=== PATIENT | female | born 1940 | race Caucasian/White ===

== ENCOUNTER → 2017-01-27 | Outpatient (REF) | payer MEDICARE ==
[~2017-01-27] MED LIST: ALBUTEROL SULFATE INH; ASPI325T PO; BENI40TA3 PO; CALCIUM 600+D PO; CLON-404 PO; DRIS50002 PO; DULC5TAB PO; FLAX1200 PO; IODINE PO; MICR10CA PO; MULTCAP PO; NITR4TASL SL; NORT50CA PO; OMEG100011 PO; OXYC1SOL PO; PLAV75TA38 PO; POTASSIUM IODIDE PO; TYLE650T30 PO; VITA-130 PO; VITATAB11 PO; ZOCO10TA PO; [UNRECOGNIZED DRUG - CODE] PO
[2017-01-27 12:40] LABS: BASO # 0.1 K/mm3 (0.0-0.2); BASO % 0.7 % (0.0-1.0); EOS # 0.5 K/mm3 (0.0-0.50); EOS % 5.2 % (0.0-3.0); LARGE UNSTAINED CELL # 0.2 K/mm3 (0.0-0.4); LARGE UNSTAINED CELL % 2.1 % (0.0-4.0); LYMPH # 2.8 K/mm3 (1.5-4.5); LYMPH % 29.3 % (24.0-44.0); MEAN CORPUSCULAR HEMOGLOBIN 27.9 pg (27.0-33.0); MEAN CORPUSCULAR VOLUME 87.1 fl (80.0-96.0); MONO # 0.4 K/mm3 (0.0-0.8); MONO % 4.6 % (0.0-5.0); NEUTROPHILS # 5.2 K/mm3 (1.8-7.7); NEUTROPHILS % 58.2 % (36.0-66.0); PLATELET COUNT, AUTOMATED 136 k/mm3 (150-450); RED CELL DISTRIBUTION WIDTH 14.2 % (11.5-14.5); WHITE BLOOD COUNT 8.9 K/mm3 (4.0-10.0)
[2017-01-27 12:53] LABS: ALBUMIN 3.5 GM/DL (3.2-5.2); ALBUMIN/GLOBULIN RATIO 1.21 (1.00-1.93); ALKALINE PHOSPHATASE 94 U/L (45-117); ALT/SGPT 21 U/L (12-78); ANION GAP 9 MEQ/L (8-16); AST/SGOT 15 U/L (15-37); BILIRUBIN,TOTAL 0.3 MG/DL (0.2-1.0); BLOOD UREA NITROGEN 21 MG/DL (7-18); CALCIUM LEVEL 8.7 MG/DL (8.8-10.2); CARBON DIOXIDE LEVEL 29 MEQ/L (21-32); CHLORIDE LEVEL 105 MEQ/L (98-107); CREATININE FOR GFR 0.92 MG/DL (0.55-1.02); GLOMERULAR FILTRATION RATE > 60.0 (>39); GLUCOSE, FASTING 113 MG/DL (83-110); MAGNESIUM LEVEL 2.2 MG/DL (1.8-2.4); POTASSIUM SERUM 4.2 MEQ/L (3.5-5.1); SODIUM LEVEL 143 MEQ/L (136-145); TOTAL PROTEIN 6.4 GM/DL (6.4-8.2)
== END ==
LOC: M SFHCPLAZ 07:41
PROVIDERS: ATTEND Family Medicine
DX: I10 Essential (primary) hypertension (principal); R73.01 Impaired fasting glucose

== ENCOUNTER → 2017-05-30 | Outpatient (CLI) | payer MEDICARE ==
[~2017-05-30] MED LIST changes: +BENI40TA26 PO; -BENI40TA3 PO; -CLON-404 PO; +CLON0.3T PO; -OXYC1SOL PO; +OXYC1SOL3 PO; +PLAV1TAB2 PO; -PLAV75TA38 PO; -VITA-130 PO; +VITA500T PO
--- NOTE | 2017-05-30 10:35 | REPMRS ---
Patient History The patient states she has not had a clinical breast exam in over a year. Family history of breast cancer in mother at age 88. Benign excisional biopsy of both breasts, 2000. Digital Woman Screen Mammo: May 30, 2017 - Exam #: [id number] Bilateral CC and MLO view(s) were taken. Technologist: Ayla Lyle, Technologist Prior study comparison: May 27, 2016, digital woman screen mammo performed at [facility]. March 31, 2015, digital woman screen mammo performed at [facility] to [facility]. April 05, 2014, digital woman screen mammo performed at [facility] to [facility]. FINDINGS: There are scattered fibroglandular densities. There is a pacemaker power plant projecting over the left axilla on the MLO view.There has been no change in the appearance of the mammogram from the prior studies. There is a mild amount of scattered fibroglandular density which is fairly symmetric. There is no interval development of dominant mass, architectural distortion, or clustered microcalcification suggestive of malignancy. ASSESSMENT: BI-RADS/ACR category 2 mammogram. Benign finding(s). Recommendation Routine screening mammogram in 1 year (for women over age 40). This mammogram was interpreted with the aid of an FDA-approved computer-aided dectection system. Electronically Signed By: Nico Clement MD 05/30/17 1759
== END ==
LOC: M WHC 09:30
PROVIDERS: ATTEND Family Medicine
DX: Z12.31 Encounter for screening mammogram for malignant neoplasm of breast (principal); Z80.3 Family history of malignant neoplasm of breast

== ENCOUNTER → 2017-06-16 | Outpatient (REF) | payer MEDICARE ==
[2017-06-16 12:44] LABS: BASO # 0.1 K/mm3 (0.0-0.2); BASO % 0.9 % (0.0-1.0); EOS # 0.3 K/mm3 (0.0-0.50); EOS % 4.2 % (0.0-3.0); LARGE UNSTAINED CELL # 0.1 K/mm3 (0.0-0.4); LARGE UNSTAINED CELL % 1.2 % (0.0-4.0); LYMPH # 2.4 K/mm3 (1.5-4.5); LYMPH % 29.7 % (24.0-44.0); MEAN CORPUSCULAR HEMOGLOBIN 28.9 pg (27.0-33.0); MEAN CORPUSCULAR HGB CONC 33.1 g/dl (32.0-36.5); MEAN CORPUSCULAR VOLUME 87.2 fl (80.0-96.0); MONO # 0.3 K/mm3 (0.0-0.8); MONO % 3.8 % (0.0-5.0); NEUTROPHILS # 4.7 K/mm3 (1.8-7.7); NEUTROPHILS % 60.2 % (36.0-66.0); PLATELET COUNT, AUTOMATED 128 k/mm3 (150-450); RED CELL DISTRIBUTION WIDTH 13.6 % (11.5-14.5); WHITE BLOOD COUNT 7.8 K/mm3 (4.0-10.0)
[2017-06-16 13:00] LABS: ALBUMIN 3.6 GM/DL (3.2-5.2); ALKALINE PHOSPHATASE 86 U/L (45-117); ALT/SGPT 23 U/L (12-78); ANION GAP 8 MEQ/L (8-16); AST/SGOT 14 U/L (15-37); BILIRUBIN,TOTAL 0.6 MG/DL (0.2-1.0); BLOOD UREA NITROGEN 23 MG/DL (7-18); CALCIUM LEVEL 9.1 MG/DL (8.8-10.2); CARBON DIOXIDE LEVEL 27 MEQ/L (21-32); CHLORIDE LEVEL 108 MEQ/L (98-107); CHOLESTEROL LEVEL 141 MG/DL (<200); CREATININE FOR GFR 0.93 MG/DL (0.55-1.02); FERRITIN 55 NG/ML (8-252); FREE T4 0.97 NG/DL (0.76-1.46); GLOMERULAR FILTRATION RATE > 60.0 (>39); GLUCOSE, FASTING 98 MG/DL (83-110); PERCENT SATURATION 27.2 % (13.2-45.0); POTASSIUM SERUM 4.3 MEQ/L (3.5-5.1); SODIUM LEVEL 143 MEQ/L (136-145); TOTAL IRON BINDING CAPACITY 327 UG/DL (250-450); TOTAL PROTEIN 6.6 GM/DL (6.4-8.2); TRIGLYCERIDES LEVEL 82 MG/DL (<150)
== END ==
LOC: M SFHCPLAZ 08:06
PROVIDERS: ATTEND Family Medicine
DX: E78.5 Hyperlipidemia, unspecified (principal); R73.01 Impaired fasting glucose; R91.1 Solitary pulmonary nodule; I48.91 Unspecified atrial fibrillation; R06.00 Dyspnea, unspecified; J45.30 Mild persistent asthma, uncomplicated; N18.2 Chronic kidney disease, stage 2 (mild); E55.9 Vitamin D deficiency, unspecified; I87.2 Venous insufficiency (chronic) (peripheral)

== ENCOUNTER → 2017-11-10 | Outpatient (REF) | payer MEDICARE ==
[2017-11-10 11:24] LABS: ESTIMATED AVERAGE GLUCOSE 114 MG/DL (60-110)
[2017-11-10 11:38] LABS: ALBUMIN 3.8 GM/DL (3.2-5.2); ALBUMIN/GLOBULIN RATIO 1.27 (1.00-1.93); ALKALINE PHOSPHATASE 99 U/L (45-117); ALT/SGPT 28 U/L (12-78); ANION GAP 7 MEQ/L (8-16); AST/SGOT 21 U/L (7-37); BILIRUBIN,TOTAL 0.3 MG/DL (0.2-1.0); BLOOD UREA NITROGEN 22 MG/DL (7-18); CALCIUM LEVEL 8.9 MG/DL (8.8-10.2); CARBON DIOXIDE LEVEL 29 MEQ/L (21-32); CHLORIDE LEVEL 109 MEQ/L (98-107); CREATININE FOR GFR 1.01 MG/DL (0.55-1.02); FREE T4 0.97 NG/DL (0.76-1.46); GLOMERULAR FILTRATION RATE 56.3 (>39); GLUCOSE, FASTING 104 MG/DL (83-110); MAGNESIUM LEVEL 2.2 MG/DL (1.8-2.4); POTASSIUM SERUM 4.5 MEQ/L (3.5-5.1); SODIUM LEVEL 145 MEQ/L (136-145); TOTAL PROTEIN 6.8 GM/DL (6.4-8.2)
[2017-11-11 09:59] LABS: THYROID PEROXIDASE ANTIBODY < 28.0 U/ML (<60.0)
== END ==
LOC: M SFHCPLAZ 08:23
DX: E78.5 Hyperlipidemia, unspecified (principal); R73.01 Impaired fasting glucose; E55.9 Vitamin D deficiency, unspecified
CPT/HCPCS: 83735

== ENCOUNTER → 2018-03-10 | Outpatient (REF) | payer MEDICARE ==
[2018-03-10 10:36] LABS: ALBUMIN 3.5 GM/DL (3.2-5.2); ALBUMIN/GLOBULIN RATIO 1.13 (1.00-1.93); ALKALINE PHOSPHATASE 126 U/L (45-117); ALT/SGPT 18 U/L (12-78); ANION GAP 7 MEQ/L (8-16); AST/SGOT 14 U/L (7-37); BILIRUBIN,TOTAL 0.3 MG/DL (0.2-1.0); BLOOD UREA NITROGEN 25 MG/DL (7-18); C REACTIVE PROTEIN QUANTITATIV 1.36 MG/DL (0.00-0.30); CALCIUM LEVEL 8.6 MG/DL (8.8-10.2); CARBON DIOXIDE LEVEL 26 MEQ/L (21-32); CHLORIDE LEVEL 109 MEQ/L (98-107); CPK CREATINE PHOSPHOKINASE 45 U/L (26-192); CREATININE FOR GFR 1.11 MG/DL (0.55-1.30); FREE T4 0.94 NG/DL (0.76-1.46); GLOMERULAR FILTRATION RATE 50.5 (>39); GLUCOSE, FASTING 111 MG/DL (70-100); POTASSIUM SERUM 4.4 MEQ/L (3.5-5.1); SODIUM LEVEL 142 MEQ/L (136-145); TOTAL PROTEIN 6.6 GM/DL (6.4-8.2)
[2018-03-10 11:32] LABS: ESTIMATED AVERAGE GLUCOSE 123 MG/DL (60-110); HEMOGLOBIN A1c 5.9 %
[2018-03-11 14:12] LABS: INSULIN LEVEL 25.7 uIU/mL (2.6-24.9)
== END ==
LOC: M SFHCPLAZ 08:05
DX: E78.5 Hyperlipidemia, unspecified (principal); R73.01 Impaired fasting glucose
CPT/HCPCS: 82550

== ENCOUNTER → 2018-06-29 | Outpatient (CLI) | payer MEDICARE | LOC: M WHC 10:45 | DX: Z12.31 Encounter for screening mammogram for malignant neoplasm of breast (principal); Z95.0 Presence of cardiac pacemaker | CPT/HCPCS: 77067 ==

== ENCOUNTER → 2019-04-23 | Outpatient (REF) | payer MEDICARE ==
[~2019-04-23] MED LIST changes: +ASPI-1 PO; -ASPI325T PO; -DRIS50002 PO; +DRIS50003 PO
[2019-04-23 11:12] LABS: BASO # 0.1 10^3/uL (0.0-0.2); BASO % 0.6 % (0.0-1.0); EOS # 0.3 10^3/uL (0.0-0.50); EOS % 2.2 % (0.0-3.0); HEMATOCRIT 49.6 % (36.0-47.0); HEMOGLOBIN 15.4 g/dl (12.0-15.5); LYMPH # 2.6 10^3/uL (1.5-4.5); LYMPH % 20.9 % (24.0-44.0); MEAN CORPUSCULAR HEMOGLOBIN 27.2 pg (27.0-33.0); MEAN CORPUSCULAR VOLUME 87.6 fl (80.0-96.0); MONO # 0.5 10^3/uL (0.0-0.8); MONO % 3.6 % (0.0-5.0); NEUTROPHILS # 9.1 10^3/uL (1.8-7.7); NEUTROPHILS % 72.4 % (36.0-66.0); PLATELET COUNT, AUTOMATED 147 10^3/uL (150-450); RED BLOOD COUNT 5.66 10^6/uL (4.00-5.40); WHITE BLOOD COUNT 12.5 10^3/uL (4.0-10.0)
[2019-04-23 11:35] LABS: ALBUMIN 3.2 GM/DL (3.2-5.2); ALT/SGPT 22 U/L (12-78); BILIRUBIN,TOTAL 0.2 MG/DL (0.2-1.0); BLOOD UREA NITROGEN 34 MG/DL (7-18); CALCIUM LEVEL 8.9 MG/DL (8.8-10.2); CARBON DIOXIDE LEVEL 26 MEQ/L (21-32); CHLORIDE LEVEL 110 MEQ/L (98-107); CREATININE FOR GFR 0.96 MG/DL (0.55-1.30); GLOMERULAR FILTRATION RATE 59.5 (>32); GLUCOSE, FASTING 100 MG/DL (70-100); POTASSIUM SERUM 4.7 MEQ/L (3.5-5.1); SODIUM LEVEL 145 MEQ/L (136-145); THYROGLOBULIN ANTIBODY < 15.0 U/ML (<60.0); THYROID PEROXIDASE ANTIBODY < 28.0 U/ML (<60.0); TOTAL PROTEIN 6.5 GM/DL (6.4-8.2)
== END ==
LOC: M SFHCPLAZ 09:24
PROVIDERS: ATTEND Family Medicine
DX: I10 Essential (primary) hypertension (principal); E03.9 Hypothyroidism, unspecified

== ENCOUNTER → 2019-05-09 | Outpatient (CLI) | payer MEDICARE ==
[~2019-05-09] MED LIST changes: +GASTROGRAFIN SOLUTION 30ML (Q9963) As Ordered ONE; +ISOVUE-370 76% 100ML VIAL (Q9967) As Ordered ONE
--- NOTE | 2019-05-09 19:38 | REP ---
CT of the abdomen pelvis with IV and oral contrast: Comparison is 02/05/2008. The visualized lung chambers demonstrate a 14 mm nodule inferiorly in the lingula of the left upper lobe. This was not present previously. The previous left rib fractures have healed. There are too small subcapsular cyst in the left lobe of the liver and one small hepatic cyst in the right lobe of the liver. These are unchanged. The hepatic parenchyma is otherwise unremarkable. The gallbladder is unremarkable. The pancreas and spleen are normal size and unremarkable. The adrenals are unremarkable. The kidneys are unremarkable except for small Bosniak type 1 left renal cortical cysts, not significantly changed. The abdominal aorta is unremarkable. There is no retroperitoneal adenopathy or mass. There is no bowel distension or obstruction. The M mesentery is unremarkable. Pelvis: The the patient has a an appendectomy. There is a hysterectomy. Vaginal cuff and adnexa are unremarkable. There are sigmoid colon diverticula without diverticulitis. There is no pelvic ascites or adenopathy. Impression: There is a 14 mm nodule at the inferior tip of the lingula as an interval change. There are stable small hepatic cysts. There are stable small simple left renal cysts, unchanged. There is diverticulosis without diverticulitis. There is an appendectomy and hysterectomy. There is no bowel distension or obstruction. No adenopathy, mass or ascites. Electronically Signed by Brenden Beckwith MD 05/09/2019 07:30 P
== END ==
LOC: M RAD 15:40
PROVIDERS: ATTEND Family Medicine
DX: R91.1 Solitary pulmonary nodule (principal); N28.1 Cyst of kidney, acquired; K76.89 Other specified diseases of liver; K57.90 Diverticulosis of intestine, part unspecified, without perforation or abscess without bleeding
CPT/HCPCS: 74177; Q9963; Q9967

== ENCOUNTER → 2019-05-31 | Outpatient (CLI) | payer MEDICARE ==
[~2019-05-31] MED LIST changes: -GASTROGRAFIN SOLUTION 30ML (Q9963) As Ordered ONE
--- NOTE | 2019-05-31 16:45 | REP ---
CT of the chest with IV contrast: Comparison is 05/03/2016 for follow up of lung nodules: There is a 3 ml lung nodule in the left upper lobe on image 52, unchanged. There is a 15 ml lung nodule inferiorly in the lingula on image 62. This measured 16 mm previously and is essentially No other lung nodules or masses are identified. There are no infiltrates or pleural effusions. There is no mediastinal, hilar or axillary lymph node enlargement. The thoracic aorta is unremarkable. Cardiac size is upper normal. There is no pericardial effusion. Upper abdomen: There is a 9 mm left adrenal nodule. Upon review this is unchanged from 12/16/2008, therefore likely benign. The right adrenal is unremarkable. The visualized upper abdominal contents are otherwise unremarkable and unchanged. Impression: There are two stable lung nodules in the left lung as described, likely benign granulomas. The lung chambers otherwise clear. There is a stable 9 mm left adrenal lung nodule as described, also likely benign. Otherwise, negative CT study of the chest. Electronically Signed by Brenden Beckwith MD 05/31/2019 04:36 P
== END ==
LOC: M RAD 10:26
PROVIDERS: ATTEND Family Medicine
DX: R91.1 Solitary pulmonary nodule (principal)
CPT/HCPCS: 71260; Q9967

== ENCOUNTER → 2020-01-14 | Outpatient (CLI) | payer MEDICARE ==
[~2020-01-14] MED LIST changes: -ISOVUE-370 76% 100ML VIAL (Q9967) As Ordered ONE
[2020-01-14 13:10] LABS: BILIRUBIN,TOTAL 0.6 MG/DL (0.2-1.0); CALCIUM LEVEL 9.9 MG/DL (8.8-10.2); CREATININE FOR GFR 1.5 MG/DL (0.55-1.30); FREE T4 0.97 NG/DL (0.76-1.46); GLOMERULAR FILTRATION RATE 35.5 (>32); PTH INTACT 34.1 PG/ML (18.5-88.0); THYROID STIMULATING HORMONE 2.1 uIU/ML (0.358-3.740); TOTAL 25(OH) VITAMIN D 66.5 NG/ML (30.0-100.0); TOTAL PROTEIN 7.2 GM/DL (6.4-8.2)
[2020-01-14 13:52] LABS: HEMOGLOBIN A1c 5.9 %
== END ==
LOC: M PLALAB 09:54
PROVIDERS: ATTEND Family Medicine
DX: E55.9 Vitamin D deficiency, unspecified (principal); R73.01 Impaired fasting glucose; E03.9 Hypothyroidism, unspecified

== ENCOUNTER → 2020-01-23 | Outpatient (REF) | payer MEDICARE ==
[2020-01-23 18:02] LABS: BASO # 0.1 10^3/uL (0.0-0.2); BASO % 0.8 % (0.0-1.0); EOS # 0.4 10^3/uL (0.0-0.5); EOS % 4.5 % (0.0-3.0); HEMATOCRIT 47.6 % (36.0-47.0); HEMOGLOBIN 15.3 g/dl (12.0-15.5); LYMPH # 3.2 10^3/uL (1.5-5.0); LYMPH % 34.4 % (24.0-44.0); MEAN CORPUSCULAR HEMOGLOBIN 27.9 pg (27.0-33.0); MEAN CORPUSCULAR HGB CONC 32.1 g/dl (32.0-36.5); MEAN CORPUSCULAR VOLUME 86.9 fl (80.0-96.0); MONO # 0.4 10^3/uL (0.0-0.8); MONO % 4.5 % (0.0-5.0); NEUTROPHILS # 5.2 10^3/uL (1.5-8.5); NEUTROPHILS % 55.4 % (36.0-66.0); PLATELET COUNT, AUTOMATED 197 10^3/uL (150-450); RED BLOOD COUNT 5.48 10^6/uL (4.00-5.40); WHITE BLOOD COUNT 9.3 10^3/uL (4.0-10.0)
[2020-01-23 18:07] LABS: APPEARANCE, URINE CLOUDY (CLEAR); BACTERIA, URINE AUTO 1+ (NEGATIVE); BILIRUBIN, URINE AUTO NEGATIVE (NEGATIVE); BLOOD, URINE BLOOD NEGATIVE (NEGATIVE); CALCIUM OXALATE CRYSTALS LARGE; COLOR, URINE YELLOW (YELLOW); GLUCOSE, URINE (UA) AUTO NEGATIVE (NEGATIVE); KETONE, URINE AUTO NEGATIVE (NEGATIVE); LEUKOCYTE ESTERASE, URINE AUTO 3+ (NEGATIVE); MUCUS, URINE SMALL (NEGATIVE); NITRITE, URINE AUTO NEGATIVE (NEGATIVE); PROTEIN, URINE AUTO NEGATIVE (NEGATIVE); RBC, URINE AUTO 7 /HPF (0-3); RENAL EPITHELIAL CELLS 4 /HPF; SPECIFIC GRAVITY URINE AUTO 1.024 (1.002-1.035); SQUAMOUS EPITHELIAL CELL UR AU 16 /HPF (0-6); UROBILINOGEN, URINE AUTO 0.2 mg/dL (0.0-2.0); WBC, URINE AUTO 61 /HPF (0-3)
[2020-01-23 18:18] LABS: ALBUMIN 3.8 GM/DL (3.2-5.2); CALCIUM LEVEL 10.3 MG/DL (8.8-10.2); CREATININE FOR GFR 1.13 MG/DL (0.55-1.30); GLOMERULAR FILTRATION RATE 49.2 (>32); MAGNESIUM LEVEL 1.8 MG/DL (1.8-2.4); POTASSIUM SERUM 5.1 MEQ/L (3.5-5.1)
== END ==
LOC: M SFHCPLAZ 13:18
PROVIDERS: ATTEND Family Medicine
DX: I12.9 Hypertensive chronic kidney disease with stage 1 through stage 4 chronic kidney disease, or unspecified chronic kidney disease (principal); N18.3 Chronic kidney disease, stage 3 (moderate); M94.0 Chondrocostal junction syndrome [Tietze]

== ENCOUNTER → 2020-09-25 | Outpatient (REF) | payer MEDICARE ==
[~2020-09-25] MED LIST changes: +VITA-243 PO; -VITA500T PO
[2020-09-25 13:26] LABS: BASO # 0.1 10^3/uL (0.0-0.2); BASO % 0.6 % (0.0-1.0); EOS # 0.3 10^3/uL (0.0-0.5); EOS % 3.4 % (0.0-3.0); HEMATOCRIT 50.3 % (36.0-47.0); HEMOGLOBIN 15.5 g/dl (12.0-15.5); LYMPH # 2.5 10^3/uL (1.5-5.0); LYMPH % 30.4 % (24.0-44.0); MEAN CORPUSCULAR HEMOGLOBIN 26.3 pg (27.0-33.0); MEAN CORPUSCULAR HGB CONC 30.8 g/dl (32.0-36.5); MEAN CORPUSCULAR VOLUME 85.4 fl (80.0-96.0); MONO # 0.4 10^3/uL (0.0-0.8); MONO % 4.8 % (0.0-5.0); NEUTROPHILS # 4.9 10^3/uL (1.5-8.5); NEUTROPHILS % 60.4 % (36.0-66.0); PLATELET COUNT, AUTOMATED 187 10^3/uL (150-450); RED BLOOD COUNT 5.89 10^6/uL (4.00-5.40); WHITE BLOOD COUNT 8.1 10^3/uL (4.0-10.0)
[2020-09-25 13:59] LABS: ALBUMIN 3.7 GM/DL (3.2-5.2); BILIRUBIN,TOTAL 0.5 MG/DL (0.2-1.0); CALCIUM LEVEL 9.3 MG/DL (8.8-10.2); CHOLESTEROL RISK RATIO 3.192 (<5); CREATININE FOR GFR 1.11 MG/DL (0.55-1.30); FREE T4 1.02 NG/DL (0.76-1.46); GLOMERULAR FILTRATION RATE 50.2 (>32); MAGNESIUM LEVEL 2.1 MG/DL (1.8-2.4); POTASSIUM SERUM 4.6 MEQ/L (3.5-5.1); THYROID STIMULATING HORMONE 1.71 uIU/ML (0.358-3.740); TOTAL PROTEIN 6.9 GM/DL (6.4-8.2)
== END ==
LOC: M SFHCPLAZ 09:27
PROVIDERS: ATTEND Family Medicine
DX: I10 Essential (primary) hypertension (principal); E78.5 Hyperlipidemia, unspecified; R73.01 Impaired fasting glucose

== ENCOUNTER 2020-12-25 13:25 | Day surgery (SDC) | payer MEDICARE ==
[~2020-12-25] VITALS: Ht 160 cm; Wt 98.4 kg
[2020-12-25] MEDS ORDERED: fentaNYL 100 MCG/2 ML INJECTION (J3010) As Ordered ONE (13:43)
[2020-12-25] MEDS ORDERED: propofoL 500 MG/50 ML VIAL As Ordered ONE (13:44)
[2020-12-25] MEDS ORDERED: LIDOCAINE 2% 100MG/5ML SDV (FOR ANES.) As Ordered ONE (13:44)
[2020-12-25] MEDS ORDERED: EZET10TA21 PO (14:02)
[2020-12-25] MEDS ORDERED: SPIR-10 PO (14:02)
[2020-12-25] MEDS ORDERED: LEVO25TA5 PO (14:02)
[2020-12-25] MEDS ORDERED: VANCOMYCIN 1000MG/20ML VIAL As Ordered ONE (14:38)
[2020-12-25] MEDS ORDERED: LIDOCAINE 1% SDV 30ML VIAL As Ordered ONE (14:51)
[2020-12-25] MEDS ORDERED: BACITRACIN PWD 50,000 UNITS VIAL As Ordered ONE (14:51)
[2020-12-25] MEDS ORDERED: VANCOMYCIN HCL 1,000 MG, VIAL MATE ADAPTER 1 EACH in D5W 250 ML IV ONE (15:30)
[2020-12-25 16:10] VITALS: BP 145/77
[2020-12-25] MEDS ORDERED: CLOP75TA2 (17:38)
--- NOTE | 2020-12-26 08:41 | ECGEPIP ---
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
--- NOTE | 2020-12-26 11:16 | RO ---
OPERATIVE NOTE DATE OF OPERATION: 12/25/2020 PREOPERATIVE DIAGNOSIS: 1. Pacemaker battery depletion. 2. Complete heart block. 3. Sinus node dysfunction/paroxysmal atrial fibrillation. POSTOPERATIVE DIAGNOSIS: 1. Pacemaker battery depletion. 2. Complete heart block. 3. Sinus node dysfunction/paroxysmal atrial fibrillation. PROCEDURE: 1. Explantation of depleted pacemaker pulse generator. 2. Testing of old atrial and ventricular pacing leads. 3. Implantation of new dual-chamber pulse generator. IMPLANTING LOCK EXPERT: Tanner Hodges M.D. ANESTHESIOLOGIST: Dr. Grant ANESTHESIA: Monitored local anesthesia. CLINICAL SUMMARY: This 80-year-old resident of [facility] is followed by Dr. Montejo, [facility] here in [place] and has known ischemic and hypertensive heart disease complicated by sinus node dysfunction, complete heart block and paroxysmal atrial fibrillation. Other medical problems include cardiovascular disease, status post endarterectomy and prior CVA with residual left-sided weakness. He remains remarkably independent despite severe chronic low back pain. He has some effort dyspnea but otherwise free of cardiovascular complaints. Her pacemaker has been monitored on a regular basis and recently found to be at the elective replacement indicator. Our cardiology pacer service was requested to arrange for a pacemaker battery replacement. Pleasant, obese lady lying comfortably with the head of the bed elevated 30 degrees. Heart rate 74 BPM and regular, blood pressure 128/78. Respiratory rate 16 per minute, O2 saturation 96%, weight 225 lb, height 5'3". No pallor or cyanosis. Trachea midline. Neck veins did not appear to be elevated. Healed carotid endarterectomy scar. Slightly increased anteroposterior chest diameter with good chest expansion and air entry to both lung chambers with no adventitious sounds. [place] not palpable. Heart sounds somewhat distant. Abdomen is soft and nontender. Pedal pulses were symmetrical. No current pedal edema. Preoperative EKG showed underlying sinus rhythm with a long programmed [place] interval but appropriate atrial sensing and tracking with consistent ventricular pacing. Tracing showing upper rate response behavior with a Wenckebach pattern in light of rate of 129 beats per minute. Obvious left atrial enlargement. Paced QRS complexes with left axis and left bundle branch block configuration in keeping with right ventricular apical stimulation. Last available blood work showed a hemoglobin of 15.9, September 04, 2020 with slightly elevated white blood cell count and normal platelet count. Last electrolytes, January, showed electrolyte balance with potassium 5.1, a slight degree of prerenal azotemia with BUN 35, creatinine 1.13. Last glycosylated hemoglobin was 5.7, TSH 1.27 and last ProBNP level was within normal limits for age of 89. DESCRIPTION OF PROCEDURE: With the patient in the fasting state, having received vancomycin 1 gm IV infusion over one hour (allergic to penicillin and cephalosporins), the patient was taken to the operating theater after she had signed informed consent. Numerous skin electrodes were applied to facilitate continuous electrocardiographic monitoring. The left subclavian region at the site of her old pacemaker was prepped and draped in the usual fashion. The old incision was infiltrated with 1% Xylocaine and a 5 cm linear incision was made over the same site. Care dissection was then carried down to the level of the pectoralis of the old depleted pacemaker which was then explanted ([employer], model 5386, serial number [id number] originally implanted August 03, 2007) and the individual atrial and ventricular pacing leads were disconnected and tested. The right ventricular lead ([employer], model number 1688T/58, serial number [id number]) measurements were: stimulation threshold 0.75 V/0.4 ms/impedance 650 ohms. The patient was virtually free of ventricular complexes with pacing temporarily at 30 beats per minute and then brief halting of pacing, a single QRS complex was observed with R wave amplitude measuring 10 mV. The atrial lead ([employer] model number 1688T/52, serial number [id number]) measurements were: stimulation threshold was 1.75 volts at 0.4 milliseconds with lead impedance of 1725 ohms. The P wave amplitude was 4.0 ms. The old pacer pocket was thoroughly irrigated with bacitracin solution. These old leads were then connected to a new dual-chamber pulse generator ([employer] model number XP5708, serial number [id number]) and appropriate DDD pacing was documented. The new pulse generator was placed in the pocket and screwed in position with a suture through the upper right-hand corner of the epoxy header. The subcutaneous tissues were approximated using a running Chromic suture and the skin was closed using zahida. Dry dressing was applied and the patient was returned to the recovery room in good condition. ESTIMATED BLOOD LOSS: 5 mL COMPLICATIONS: None. DISCHARGE RECOMMENDATIONS AND MEDICATIONS: The patient was encouraged toperform only light activities with her left arm for the next week and to avoid getting her incision wet until she comes to our office appointment for wound check and staple removal January 01, 2021 at 11:30 a.m. Subsequent cardiology followup will resume with Dr. Montejo. She was encouraged to resume her customary no-added salt, low fat, low cholesterol diet. Her medications will continue, Benicar 40 mg p.o. daily, Spironolactone 25 mg daily, KCl 20 mEq daily p.o., Plavix 75 mg daily, Zetia 10 mg daily, aspirin 325 mg daily, levothyroxine 25 mcg daily, Catapres 0.3 mg tablets, one tablet b.i.d., vitamin D 50,000 units one weekly on Fridays, sublingual nitroglycerin 0.4 mg tablets, one tablet each five minutes p.r.n. chest pain. Multivitamin one tablet daily, fish oil one tablet daily and flaxseed oil tablet, one tablet daily with calcium 600 mg with vitamin D p.o. b.i.d. We requested she contact us promptly for any abnormal erythema, swelling or discharge. FOUZIA
== END 2020-12-25 17:10 | disposition home or self-care (01) ==
LOC: M SDC 13:25
PROVIDERS: ATTEND Internal Medicine Cardiovascular Disease
DX: Z45.010 Encounter for checking and testing of cardiac pacemaker pulse generator [battery] (principal); I44.2 Atrioventricular block, complete; I48.0 Paroxysmal atrial fibrillation; Z88.0 Allergy status to penicillin; Z88.2 Allergy status to sulfonamides; Z88.8 Allergy status to other drugs, medicaments and biological substances; Z79.899 Other long term (current) drug therapy
CPT/HCPCS: 33228; 93005; C1785; J3010; J3370; U0002

== ENCOUNTER 2020-12-25 17:16 | Emergency (ER) | payer MEDICARE ==
[~2020-12-25] VITALS: Ht 160 cm; Wt 98.6 kg
[~2020-12-25 17:16] MED LIST changes: +EZET10TA21 PO; +LEVO25TA5 PO; +SPIR-10 PO
[2020-12-25] MEDS ORDERED: CLOP75TA2 (17:38)
--- NOTE | 2020-12-25 18:00 | REPVR ---
PROCEDURE INFORMATION: Exam: CT Head Without Contrast Exam date and time: 12/25/2020 5:35 PM Age: 80 years old Clinical indication: Injury or trauma; Fall; Blunt trauma (contusions or hematomas); Additional info: Fall forward. Head injury. On plavix TECHNIQUE: Imaging protocol: Computed tomography of the head without contrast. Radiation optimization: All CT scans at this facility use at least one of these dose optimization techniques: automated exposure control; mA and/or kV adjustment per patient size (includes targeted exams where dose is matched to clinical indication); or iterative reconstruction. COMPARISON: CT Head without contrast 10/11/2016 4:30 AM FINDINGS: Brain: Moderate hypoattenuating foci are noted in the anterior lateral ventricular periventricular white matter bilaterally. No intracranial hemorrhage. No mass or acute cortical infarction identified. Cerebral ventricles: Prominence of the ventricular system and subarachnoid spaces is consistent with the patient's age of 80 years. Bones/joints: No acute abnormality identified. No acute fracture. Paranasal sinuses: Visualized sinuses are unremarkable. No fluid levels. Mastoid air cells: Visualized mastoid air cells are well aerated. Vasculature: Atherosclerotic calcifications are present involving the carotid artery siphons bilaterally. Soft tissues: Anterior midline lower frontal subcutaneous hematoma is present measuring 15 mm in thickness. IMPRESSION: 1. Subcutaneous hematoma. 2. Age appropriate supratentorial and infratentorial atrophy. 3. Moderate chronic white matter microvascular ischemic disease. 4. No acute intracranial injury identified. Electronically signed by: Ronny Xiao On 12/25/2020 18:00:37 PM
--- NOTE | 2020-12-25 18:07 | REPVR ---
PROCEDURE INFORMATION: Exam: CT Cervical Spine Without Contrast Exam date and time: 12/25/2020 5:35 PM Age: 80 years old Clinical indication: Injury or trauma; Fall; Blunt trauma; Additional info: Fall forward. Head trauma. TECHNIQUE: Imaging protocol: Computed tomography images of the cervical spine without contrast. Radiation optimization: All CT scans at this facility use at least one of these dose optimization techniques: automated exposure control; mA and/or kV adjustment per patient size (includes targeted exams where dose is matched to clinical indication); or iterative reconstruction. COMPARISON: No relevant prior studies available. FINDINGS: Bones/joints: Mild leftward cervical spinal curvature. Mild C2-C3 spondylosis. Mild C2-C3 retrolisthesis. Severe C2-C3 disc height loss. Mild C3-C4 and C4-C5 anterolisthesis. Mild C7-T1 anterolisthesis. Discs/Spinal canal/Neural foramina: Moderate atlantodental osteoarthritis. Left C1-C2 lateral mass primary osteoarthritis with small para-articular ossification. Mild bilateral C2-C3 primary facet osteoarthritis. Moderately severe C2-C3 bilateral neural foraminal narrowing. Moderate right, mild left C3-C4 primary facet osteoarthritis. Severe bilateral C3-C4 neural foraminal narrowing. C3-C4 inferiorly inferiorly extruded central disc herniation, probable cord impingement. C4-C5 central disc protrusion, probable cord impingement. Severe right, moderately severe left C4-C5, C5-C6 and C6-C7 neural foraminal narrowing. C5-6 and C6-7 degenerative disc disease with mild spondylosis. Moderate bilateral C7-T1 primary facet osteoarthritis. Lungs: Lung apices are normal. Soft tissues: Unremarkable. IMPRESSION: 1. C3-C4 inferiorly inferiorly extruded central disc herniation, probable cord impingement. 2. C4-C5 central disc protrusion, probable cord impingement. 3. Additional digit changes as above. 4. No acute cervical spinal bony injury identified. Electronically signed by: Ronny Xiao On 12/25/2020 18:07:11 PM
--- NOTE | 2020-12-25 18:36 | REP ---
INDICATION: CHEST PAIN. COMPARISON: 10/11/2016. TECHNIQUE: SINGLE PORTABLE AP VIEW OF THE CHEST WAS PERFORMED. FINDINGS: There is mild bibasilar fibrotic change. There is no acute infiltrate. The heart is normal in size. There is mild calcification of the thoracic aorta. The mediastinal silhouette is unchanged. Left dual lead pacemaker is noted. IMPRESSION: NO ACUTE PULMONARY DISEASE. <Electronically signed by Brenden Grove > 12/25/20 [id number]
[2020-12-25 18:38] LABS: BASO # 0.1 10^3/uL (0.0-0.2); BASO % 0.5 % (0.0-1.0); EOS # 0.3 10^3/uL (0.0-0.5); EOS % 2.4 % (0.0-3.0); HEMATOCRIT 51.9 % (36.0-47.0); HEMOGLOBIN 16.2 g/dl (12.0-15.5); LYMPH # 3.1 10^3/uL (1.5-5.0); LYMPH % 27.1 % (24.0-44.0); MEAN CORPUSCULAR HEMOGLOBIN 26.5 pg (27.0-33.0); MEAN CORPUSCULAR HGB CONC 31.2 g/dl (32.0-36.5); MEAN CORPUSCULAR VOLUME 84.8 fl (80.0-96.0); MONO # 0.6 10^3/uL (0.0-0.8); MONO % 5.6 % (0.0-5.0); NEUTROPHILS # 7.3 10^3/uL (1.5-8.5); NEUTROPHILS % 64.1 % (36.0-66.0); PLATELET COUNT, AUTOMATED 210 10^3/uL (150-450); RED BLOOD COUNT 6.12 10^6/uL (4.00-5.40); WHITE BLOOD COUNT 11.3 10^3/uL (4.0-10.0)
[2020-12-25 18:50] LABS: INR 1.05; PROTHROMBIN TIME 13.9 SECONDS (12.5-14.3)
[2020-12-25 19:00] LABS: BILIRUBIN,DIRECT 0.1 MG/DL (0.0-0.2); BILIRUBIN,TOTAL 0.6 MG/DL (0.2-1.0); CALCIUM LEVEL 9.2 MG/DL (8.8-10.2); CK-MB VALUE MASS 1.9 NG/ML (<3.6); CREATININE FOR GFR 1.19 MG/DL (0.55-1.30); FREE T4 1.16 NG/DL (0.76-1.46); GLOMERULAR FILTRATION RATE 46.2 (>32); MB/CK RELATIVE INDEX 2.29 (< OR =4); POTASSIUM SERUM 4.2 MEQ/L (3.5-5.1); THYROID STIMULATING HORMONE 2.19 uIU/ML (0.358-3.740); TOTAL PROTEIN 7.3 GM/DL (6.4-8.2); TROPONIN I 0.04 NG/ML (< 0.10)
[2020-12-25] MEDS ORDERED: OLMESARTAN MEDOXOMIL 20 MG TAB (BENICAR) PO STA (19:04)
[2020-12-25] MEDS ORDERED: BOOSTRIX/ADACEL VACCINE (DIPHTH/PERTUSS/ACELL/TETANUS) 0.5ML SYR IM ONE (19:15)
[2020-12-25 19:39] VITALS: BP 168/99
--- NOTE | 2020-12-25 19:44 | ECGEPIP ---
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
--- NOTE | 2020-12-25 22:38 | ED PDOC ---
Post-Departure Follow-Up ct c spine faxed formal report to dr borges for fu Marko Polanco MD Dec 25, 2020 22:38
== END 2020-12-25 19:41 | disposition home or self-care (01) ==
LOC: M ED 17:16
DX: S01.81XA Laceration without foreign body of other part of head, initial encounter (principal); S09.90XA Unspecified injury of head, initial encounter; W19.XXXA Unspecified fall, initial encounter; Y92.9 Unspecified place or not applicable; Y93.9 Activity, unspecified; Y99.9 Unspecified external cause status; M50.21 Other cervical disc displacement, high cervical region; M50.221 Other cervical disc displacement at C4-C5 level; Z88.8 Allergy status to other drugs, medicaments and biological substances; I11.9 Hypertensive heart disease without heart failure; I25.9 Chronic ischemic heart disease, unspecified; I71.4 Abdominal aortic aneurysm, without rupture; Z79.01 Long term (current) use of anticoagulants; Z88.0 Allergy status to penicillin; Z88.6 Allergy status to analgesic agent; Z95.0 Presence of cardiac pacemaker; Z79.82 Long term (current) use of aspirin; Z79.899 Other long term (current) drug therapy

== ENCOUNTER → 2021-05-28 | Outpatient (CLI) | payer MEDICARE ==
[~2021-05-28] MED LIST changes: +CLOP75TA2
[2021-05-28 13:51] LABS: BASO # 0.1 10^3/uL (0.0-0.2); BASO % 0.7 % (0.0-1.0); EOS # 0.4 10^3/uL (0.0-0.5); EOS % 3.3 % (0.0-3.0); HEMATOCRIT 48.9 % (36.0-47.0); HEMOGLOBIN 15.3 g/dl (12.0-15.5); LYMPH # 3.6 10^3/uL (1.5-5.0); LYMPH % 29.9 % (24.0-44.0); MEAN CORPUSCULAR HEMOGLOBIN 27.9 pg (27.0-33.0); MEAN CORPUSCULAR HGB CONC 31.3 g/dl (32.0-36.5); MEAN CORPUSCULAR VOLUME 89.2 fl (80.0-96.0); MONO # 0.7 10^3/uL (0.0-0.8); MONO % 5.5 % (2.0-8.0); NEUTROPHILS # 7.2 10^3/uL (1.5-8.5); NEUTROPHILS % 60.1 % (36.0-66.0); PLATELET COUNT, AUTOMATED 202 10^3/uL (150-450); RED BLOOD COUNT 5.48 10^6/uL (4.00-5.40); WHITE BLOOD COUNT 11.9 10^3/uL (4.0-10.0)
[2021-05-28 14:05] LABS: HEMOGLOBIN A1c 5.6 %
[2021-05-28 14:25] LABS: ALBUMIN 3.8 GM/DL (3.2-5.2); BILIRUBIN,TOTAL 0.4 MG/DL (0.2-1.0); CALCIUM LEVEL 10.6 MG/DL (8.8-10.2); CREATININE FOR GFR 1.13 MG/DL (0.55-1.30); FREE T4 0.98 NG/DL (0.76-1.46); GLOMERULAR FILTRATION RATE 49.1 (>32); POTASSIUM SERUM 5.5 MEQ/L (3.5-5.1); PTH INTACT 18.9 PG/ML (18.5-88.0); THYROID STIMULATING HORMONE 1.96 uIU/ML (0.358-3.740); TOTAL 25(OH) VITAMIN D 68.7 NG/ML (30.0-100.0)
== END ==
LOC: M PLALAB 11:51
PROVIDERS: ATTEND Family Medicine
DX: E55.9 Vitamin D deficiency, unspecified (principal); E07.9 Disorder of thyroid, unspecified; D50.9 Iron deficiency anemia, unspecified

== ENCOUNTER → 2021-06-04 | Outpatient (CLI) | payer MEDICARE ==
[2021-06-04 15:50] LABS: ALBUMIN 3.6 GM/DL (3.2-5.2); BLOOD UREA NITROGEN 26 MG/DL (7-18); CALCIUM LEVEL 8.7 MG/DL (8.8-10.2); CARBON DIOXIDE LEVEL 30 MEQ/L (21-32); CHLORIDE LEVEL 108 MEQ/L (98-107); CREATININE FOR GFR 1.12 MG/DL (0.55-1.30); GLOMERULAR FILTRATION RATE 49.6 (>32); GLUCOSE, FASTING 73 MG/DL (70-100); PHOSPHORUS LEVEL 3.1 MG/DL (2.5-4.9); POTASSIUM SERUM 4.7 MEQ/L (3.5-5.1); SODIUM LEVEL 143 MEQ/L (136-145); TOTAL PROTEIN 6.8 GM/DL (6.4-8.2)
[2021-06-04 15:58] LABS: PTH INTACT 62.4 PG/ML (18.5-88.0)
[2021-06-05 10:46] LABS: ALBUMIN % 58.4 % (55.8-66.1); ALPHA-1-GLOBULIN % 4.7 % (2.9-4.9); BETA-1-GLOBULINS % 6.2 % (4.7-7.2)
[2021-06-05 10:47] LABS: ALBUMIN 3.97 GM/DL (3.29-5.55); ALPHA-1-GLOBULINS 0.32 GM/DL (0.17-0.41); ALPHA-2-GLOBULINS 0.88 GM/DL (0.42-0.99); BETA-1-GLOBULINS 0.42 GM/DL (0.28-0.60); BETA-2-GLOBULINS 0.32 GM/DL (0.19-0.55); BETA-2-GLOBULINS % 4.7 % (3.2-6.5); GAMMA GLOBULINS 0.88 GM/DL (0.65-1.58)
== END ==
LOC: M PLALAB 12:50
PROVIDERS: ATTEND Family Medicine
DX: E55.9 Vitamin D deficiency, unspecified (principal)

== ENCOUNTER → 2021-06-22 | Outpatient (CLI) | payer MEDICARE ==
[~2021-06-22] MED LIST changes: +ASCO500T PO; +FLAX100016 PO; +MULT-90 PO; +MULT1TAB7 PO; +OLME20TA2 PO; +PERC5TAB12 PO; +PERCOCET PO; +VITA200015 PO; +VITA200030 PO
== END ==
LOC: M RAD 14:42
PROVIDERS: ATTEND Physician Assistant
DX: M20.42 Other hammer toe(s) (acquired), left foot (principal); M19.072 Primary osteoarthritis, left ankle and foot

== ENCOUNTER → 2021-09-28 | Outpatient (CLI) | payer MEDICARE ==
[~2021-09-28] MED LIST changes: -ASCO500T PO; -FLAX100016 PO; -MULT-90 PO; -MULT1TAB7 PO; -OLME20TA2 PO; -PERC5TAB12 PO; -PERCOCET PO; -VITA200015 PO; -VITA200030 PO
[2021-09-28 13:29] LABS: HEMATOCRIT 52.8 % (36.0-47.0); HEMOGLOBIN 16.5 g/dl (12.0-15.5); MEAN CORPUSCULAR HEMOGLOBIN 27.3 pg (27.0-33.0); MEAN CORPUSCULAR HGB CONC 31.3 g/dl (32.0-36.5); MEAN CORPUSCULAR VOLUME 87.4 fl (80.0-96.0); PLATELET COUNT, AUTOMATED 189 10^3/uL (150-450); RED BLOOD COUNT 6.04 10^6/uL (4.00-5.40); WHITE BLOOD COUNT 9.6 10^3/uL (4.0-10.0)
[2021-09-28 13:30] LABS: BASO # 0.1 10^3/uL (0.0-0.2); BASO % 0.6 % (0.0-1.0); EOS # 0.3 10^3/uL (0.0-0.5); LYMPH # 2.8 10^3/uL (1.5-5.0); LYMPH % 28.8 % (24.0-44.0); MONO # 0.4 10^3/uL (0.0-0.8); MONO % 4.2 % (2.0-8.0); NEUTROPHILS # 6.1 10^3/uL (1.5-8.5)
[2021-09-28 13:51] LABS: HEMOGLOBIN A1c 5.5 %
[2021-09-28 14:08] LABS: ALBUMIN 3.8 GM/DL (3.2-5.2); BILIRUBIN,TOTAL 0.6 MG/DL (0.2-1.0); CALCIUM LEVEL 11.1 MG/DL (8.8-10.2); CREATININE FOR GFR 1.22 MG/DL (0.55-1.30); GLOMERULAR FILTRATION RATE 44.9 (>32); MAGNESIUM LEVEL 2.5 MG/DL (1.8-2.4); POTASSIUM SERUM 4.8 MEQ/L (3.5-5.1); PTH INTACT 13.9 PG/ML (18.5-88.0); TOTAL PROTEIN 7.1 GM/DL (6.4-8.2)
== END ==
LOC: M PLALAB 09:39
PROVIDERS: ATTEND Family Medicine
DX: R73.01 Impaired fasting glucose (principal); I10 Essential (primary) hypertension; E55.9 Vitamin D deficiency, unspecified; Z79.899 Other long term (current) drug therapy

== ENCOUNTER → 2021-10-12 | Outpatient (CLI) | payer MEDICARE ==
[~2021-10-12] MED LIST changes: +ASCO500T PO; +FLAX100016 PO; +MULT-90 PO; +MULT1TAB7 PO; +OLME20TA2 PO; +PERC5TAB12 PO; +PERCOCET PO; +VITA200015 PO; +VITA200030 PO
== END ==
LOC: M RAD 13:03
PROVIDERS: ATTEND Family Medicine
DX: M17.0 Bilateral primary osteoarthritis of knee (principal)

== ENCOUNTER 2021-10-16 17:18 | Inpatient (IN) | payer MEDICARE ==
[~2021-10-16] VITALS: Ht 160 cm; Wt 98.2 kg
[~2021-10-16 17:18] MED LIST changes: -ASCO500T PO; -FLAX100016 PO; -MULT-90 PO; -MULT1TAB7 PO; -OLME20TA2 PO; -PERC5TAB12 PO; -PERCOCET PO; -VITA200015 PO; -VITA200030 PO
[2021-10-16] MEDS ORDERED: NS 1,000 ML IV SCH (19:20)
[2021-10-16 20:00] LABS: BASO # 0.1 10^3/uL (0.0-0.2); BASO % 0.4 % (0.0-1.0); EOS # 0.2 10^3/uL (0.0-0.5); HEMATOCRIT 51.7 % (36.0-47.0); HEMOGLOBIN 16.4 g/dl (12.0-15.5); LYMPH # 3.1 10^3/uL (1.5-5.0); LYMPH % 17.5 % (24.0-44.0); MEAN CORPUSCULAR HEMOGLOBIN 27.4 pg (27.0-33.0); MEAN CORPUSCULAR HGB CONC 31.7 g/dl (32.0-36.5); MEAN CORPUSCULAR VOLUME 86.3 fl (80.0-96.0); MONO # 0.7 10^3/uL (0.0-0.8); MONO % 4.1 % (2.0-8.0); NEUTROPHILS # 13.5 10^3/uL (1.5-8.5); NEUTROPHILS % 76.3 % (36.0-66.0); PLATELET COUNT, AUTOMATED 208 10^3/uL (150-450); RED BLOOD COUNT 5.99 10^6/uL (4.00-5.40); WHITE BLOOD COUNT 17.8 10^3/uL (4.0-10.0)
[2021-10-16] MEDS ORDERED: ONDANSETRON 4MG/2ML VIAL IV ONE ×2 (20:05→23:40)
[2021-10-16 20:23] LABS: INR 1.01; PROTHROMBIN TIME 13.7 SECONDS (12.7-14.5)
[2021-10-16 20:24] LABS: PARTIAL THROMBOPLASTIN TIME 30.5 SECONDS (25.9-37.0)
[2021-10-16] MEDS ORDERED: fentaNYL 100 MCG/2 ML INJECTION IV ONE (21:05)
[2021-10-16] MEDS ORDERED: CLON0.3T PO (23:11)
[2021-10-16] MEDS ORDERED: VITA200015 PO (23:15)
[2021-10-16] MEDS ORDERED: MULT-90 PO (23:15)
[2021-10-16] MEDS ORDERED: FLAX100016 PO (23:15)
[2021-10-16] MEDS ORDERED: OLME20TA2 PO (23:17)
[2021-10-16] MEDS ORDERED: HOME MED LIST COMPLETE! XX SCH (23:20)
[2021-10-16] MEDS ORDERED: MORPHINE 4 MG/ML 1ML VIAL/SYRINGE (J2270) IV ONE (23:45)
[2021-10-16] MEDS ORDERED: MOM 30ML SUSPENSION UDC PO PRN (23:50)
[2021-10-17] MEDS ORDERED: NITROGLYCERIN 0.4 MG SUBL TABLET SL PRN (00:30)
[2021-10-17] MEDS ORDERED: PERCOCET 5MG/325MG TAB PO PRN ×2 (01:15→23:20)
[2021-10-17] MEDS ORDERED: PROMETHAZINE INJ 25 MG/ML VIAL (J2550) IV PRN (02:10)
[2021-10-17 04:45] VITALS: BP 117/86
[2021-10-17] MEDS: LEVOTHYROXINE 25MCG TABLET (0.025MG) PO SCH (05:11)
[2021-10-17 07:33] LABS: BASO % 0.3 % (0.0-1.0); EOS # 0.1 10^3/uL (0.0-0.5); EOS % 0.6 % (0.0-3.0); HEMATOCRIT 47.4 % (36.0-47.0); HEMOGLOBIN 15.2 g/dl (12.0-15.5); LYMPH # 2.5 10^3/uL (1.5-5.0); LYMPH % 18.6 % (24.0-44.0); MEAN CORPUSCULAR HEMOGLOBIN 27.6 pg (27.0-33.0); MEAN CORPUSCULAR HGB CONC 32.1 g/dl (32.0-36.5); MEAN CORPUSCULAR VOLUME 86.2 fl (80.0-96.0); MONO # 0.7 10^3/uL (0.0-0.8); MONO % 5.4 % (2.0-8.0); NEUTROPHILS # 9.9 10^3/uL (1.5-8.5); NEUTROPHILS % 74.4 % (36.0-66.0); PLATELET COUNT, AUTOMATED 186 10^3/uL (150-450); WHITE BLOOD COUNT 13.2 10^3/uL (4.0-10.0)
[2021-10-17 07:53] LABS: CALCIUM LEVEL 9.2 MG/DL (8.8-10.2); CREATININE FOR GFR 1.09 MG/DL (0.55-1.30); POTASSIUM SERUM 4.1 MEQ/L (3.5-5.1)
[2021-10-17] MEDS: SPIRONOLACTONE 25 MG TAB PO SCH (08:58)
[2021-10-17] MEDS: OLMESARTAN MEDOXOMIL 20 MG TAB (BENICAR) PO SCH (08:58)
[2021-10-17] MEDS: EZETIMIBE 10MG TABLET (ZETIA) PO SCH (08:59)
[2021-10-17] MEDS: cloNIDine 0.1MG TABLET PO SCH ×2 (08:59→09:00)
[2021-10-17] MEDS: OMEGA-3 1000MG CAPSULE PO SCH (08:59)
[2021-10-17] MEDS: PERCOCET 5MG/325MG TAB PO PRN (09:00)
[2021-10-17] MEDS ORDERED: FLUBLOK(EGG FREE)(QUAD)INFLUENZA VACC 0.5ML SYRINGE 18YRS & OLDER IM ONE (09:00)
[2021-10-17] MEDS: ASCORBIC ACID 500 MG TAB PO SCH (09:00)
[2021-10-17] MEDS: HEPARIN SOD (PORCINE) 5000UNITS/ML 1ML VIAL/SYRINGE SQ SCH ×2 (09:01→16:09)
[2021-10-17] MEDS: ONDANSETRON 4MG/2ML VIAL IV PRN ×2 (13:03→23:36)
[2021-10-17 14:00] VITALS: BP 164/80
[2021-10-17] MEDS ORDERED: MIDAZOLAM INJ 2MG/2ML VIAL (J2250 PER 1MG) As Ordered ONE (18:41)
[2021-10-17] MEDS ORDERED: LIDOCAINE 2% 100MG/5ML SDV (FOR ANES.) As Ordered ONE (18:41)
[2021-10-17] MEDS ORDERED: ROCURONIUM BROMIDE 50 MG/5 ML VIAL As Ordered ONE (18:41)
[2021-10-17] MEDS ORDERED: fentaNYL 250 MCG/5 ML INJECTION As Ordered ONE (18:41)
[2021-10-17] MEDS ORDERED: propofoL 200 MG/20 ML VIAL As Ordered ONE (18:41)
[2021-10-17] MEDS ORDERED: TRANEXAMIC ACID 100 MG/ML 10ML VIAL As Ordered ONE (18:53)
[2021-10-17] MEDS ORDERED: ceFAZolin 2 GM/D5W 50 ML IV BAG (J0690 PER 500MG) As Ordered ONE (18:53)
[2021-10-17] MEDS ORDERED: CLINDAMYCIN INJ 900MG/6ML VIAL As Ordered ONE (19:43)
[2021-10-17] MEDS ORDERED: PHENYLephrine 500MCG 5ML (100MCG/ML) SYRINGE As Ordered ONE (20:56)
[2021-10-17] MEDS ORDERED: PHENYLEPHRINE 10MG/ML 1ML VIAL (J2370 PER 1) As Ordered ONE (20:56)
[2021-10-17] MEDS ORDERED: dexameTHASONE 4 MG/ML 1ML VIAL (J1100 PER 1MG) As Ordered ONE (22:14)
[2021-10-17] MEDS ORDERED: KETOROLAC 60MG 2ML VIAL As Ordered ONE (22:14)
[2021-10-17] MEDS ORDERED: ACETAMINOPHEN 1000MG 100ML IV BTL (OFIRMEV) (J0131 PER 10MG) As Ordered ONE (22:14)
[2021-10-17] MEDS ORDERED: ONDANSETRON 4MG/2ML VIAL As Ordered ONE (22:14)
[2021-10-17] MEDS ORDERED: SUGAMMADEX SODIUM 500 MG/5 ML VIAL (BRIDION) As Ordered ONE (22:20)
[2021-10-17] MEDS ORDERED: LR 1,000 ML IV SCH (23:20)
[2021-10-17] MEDS ORDERED: ONDANSETRON 4MG/2ML VIAL IV PRN (23:20)
[2021-10-17] MEDS ORDERED: fentaNYL 100 MCG/2 ML INJECTION IV PRN (23:20)
[2021-10-17] MEDS ORDERED: KETOROLAC 30 MG/ML 1ML VIAL IV PRN (23:20)
[2021-10-18] VITALS (12 sets, daily range): BP systolic 102–176; BP diastolic 65–99
[2021-10-18] MEDS ORDERED: IPRATROPIUM 0.5MG/ALBUTEROL 2.5MG INH SOL UD 3ML (DUONEB) NEB PRN
[2021-10-18] MEDS ORDERED: LR 1,000 ML IV SCH (00:15)
[2021-10-18] MEDS: cloNIDine 0.1MG TABLET PO SCH ×3 (00:17→21:58)
[2021-10-18 02:08] LABS: ABG BASE EXCESS 0.3 (-2.0-2.0); ABG HCO3 26.1 MEQ/L (22.0-26.0); ABG O2 SATURATION 98.8 % (95.0-99.0); ABG PARTIAL PRESSURE CO2 46.1 mmHg (35.0-45.0); ABG PARTIAL PRESSURE O2 138.3 mmHg (75.0-100.0); ABG STANDARD HCO3 24.8 MEQ/L (22.0-26.0); ABG TOTAL CO2 27.5 MEQ/L (23.0-31.0); ABG pH (ARTERIAL) 7.371 UNITS (7.350-7.450)
[2021-10-18] MEDS: HEPARIN SOD (PORCINE) 5000UNITS/ML 1ML VIAL/SYRINGE SQ SCH ×3 (06:04→21:57)
[2021-10-18] MEDS: LEVOTHYROXINE 25MCG TABLET (0.025MG) PO SCH (06:04)
[2021-10-18] MEDS: ACETAMINOPHEN TAB 650MG DOSE (2X325MG) PO PRN (06:05)
[2021-10-18 07:21] LABS: BASO % 0.1 % (0.0-1.0); HEMATOCRIT 47.2 % (36.0-47.0); HEMOGLOBIN 14.9 g/dl (12.0-15.5); LYMPH # 1.7 10^3/uL (1.5-5.0); LYMPH % 13.8 % (24.0-44.0); MEAN CORPUSCULAR HEMOGLOBIN 27.5 pg (27.0-33.0); MEAN CORPUSCULAR HGB CONC 31.6 g/dl (32.0-36.5); MEAN CORPUSCULAR VOLUME 87.2 fl (80.0-96.0); MONO # 0.2 10^3/uL (0.0-0.8); MONO % 1.4 % (2.0-8.0); NEUTROPHILS # 10.5 10^3/uL (1.5-8.5); NEUTROPHILS % 84.1 % (36.0-66.0); PLATELET COUNT, AUTOMATED 170 10^3/uL (150-450); RED BLOOD COUNT 5.41 10^6/uL (4.00-5.40); WHITE BLOOD COUNT 12.5 10^3/uL (4.0-10.0)
[2021-10-18 07:38] LABS: CALCIUM LEVEL 8.4 MG/DL (8.8-10.2); CREATININE FOR GFR 1.19 MG/DL (0.55-1.30); GLOMERULAR FILTRATION RATE 46.1 (>32); POTASSIUM SERUM 4.5 MEQ/L (3.5-5.1)
[2021-10-18] MEDS: OMEGA-3 1000MG CAPSULE PO SCH (08:27)
[2021-10-18] MEDS: ASCORBIC ACID 500 MG TAB PO SCH (08:27)
[2021-10-18] MEDS: EZETIMIBE 10MG TABLET (ZETIA) PO SCH (08:27)
[2021-10-18] MEDS: CLOPIDOGREL 75 MG TAB PO SCH (08:27)
[2021-10-18] MEDS: SPIRONOLACTONE 25 MG TAB PO SCH (08:27)
[2021-10-18] MEDS: ASPIRIN 81 MG CHEW TABLET PO SCH (08:31)
[2021-10-18] MEDS: OLMESARTAN MEDOXOMIL 20 MG TAB (BENICAR) PO SCH (08:31)
[2021-10-18] MEDS ORDERED: ASPIRIN 325 MG TAB PO SCH (09:00)
[2021-10-18] MEDS: ONDANSETRON 4MG/2ML VIAL IV PRN (17:26)
[2021-10-18] MEDS: METOCLOPRAMIDE INJ 10MG/2ML VIAL (J2765 PER 1) IV PRN (18:38)
[2021-10-19] MEDS: LEVOTHYROXINE 25MCG TABLET (0.025MG) PO SCH (05:42)
[2021-10-19] MEDS: HEPARIN SOD (PORCINE) 5000UNITS/ML 1ML VIAL/SYRINGE SQ SCH ×3 (05:43→21:30)
[2021-10-19] MEDS: PERCOCET 5MG/325MG TAB PO PRN (05:43)
[2021-10-19 06:00] VITALS: BP 120/72
[2021-10-19] MEDS: CLOPIDOGREL 75 MG TAB PO SCH (08:53)
[2021-10-19] MEDS: ASPIRIN 81 MG CHEW TABLET PO SCH (08:53)
[2021-10-19] MEDS: ASCORBIC ACID 500 MG TAB PO SCH (08:53)
[2021-10-19] MEDS: OMEGA-3 1000MG CAPSULE PO SCH (08:53)
[2021-10-19] MEDS: EZETIMIBE 10MG TABLET (ZETIA) PO SCH (08:54)
[2021-10-19] MEDS: SPIRONOLACTONE 25 MG TAB PO SCH (08:54)
[2021-10-19] MEDS: cloNIDine 0.1MG TABLET PO SCH ×2 (08:56→21:30)
[2021-10-19] MEDS: OLMESARTAN MEDOXOMIL 20 MG TAB (BENICAR) PO SCH (08:56)
[2021-10-19 09:06] LABS: BASO # 0.1 10^3/uL (0.0-0.2); BASO % 0.4 % (0.0-1.0); EOS # 0.1 10^3/uL (0.0-0.5); EOS % 0.7 % (0.0-3.0); HEMATOCRIT 48.6 % (36.0-47.0); HEMOGLOBIN 15.3 g/dl (12.0-15.5); LYMPH # 3.3 10^3/uL (1.5-5.0); LYMPH % 19.7 % (24.0-44.0); MEAN CORPUSCULAR HEMOGLOBIN 27.3 pg (27.0-33.0); MEAN CORPUSCULAR HGB CONC 31.5 g/dl (32.0-36.5); MEAN CORPUSCULAR VOLUME 86.8 fl (80.0-96.0); MONO # 0.8 10^3/uL (0.0-0.8); MONO % 4.5 % (2.0-8.0); NEUTROPHILS # 12.4 10^3/uL (1.5-8.5); NEUTROPHILS % 74.1 % (36.0-66.0); PLATELET COUNT, AUTOMATED 190 10^3/uL (150-450); WHITE BLOOD COUNT 16.7 10^3/uL (4.0-10.0)
[2021-10-19 09:51] LABS: CALCIUM LEVEL 9.1 MG/DL (8.8-10.2); CREATININE FOR GFR 0.98 MG/DL (0.55-1.30); GLOMERULAR FILTRATION RATE 57.7 (>32); POTASSIUM SERUM 4.3 MEQ/L (3.5-5.1)
[2021-10-19 14:00] VITALS: BP 157/96
[2021-10-19 22:00] VITALS: BP 149/91
[2021-10-20] MEDS: LEVOTHYROXINE 25MCG TABLET (0.025MG) PO SCH (05:52)
[2021-10-20] MEDS: HEPARIN SOD (PORCINE) 5000UNITS/ML 1ML VIAL/SYRINGE SQ SCH ×3 (05:52→20:58)
[2021-10-20 06:00] VITALS: BP 160/81
[2021-10-20 06:36] LABS: BASO # 0.1 10^3/uL (0.0-0.2); BASO % 0.5 % (0.0-1.0); EOS # 0.3 10^3/uL (0.0-0.5); EOS % 2.5 % (0.0-3.0); HEMATOCRIT 44.2 % (36.0-47.0); HEMOGLOBIN 13.8 g/dl (12.0-15.5); LYMPH # 3.1 10^3/uL (1.5-5.0); LYMPH % 26.2 % (24.0-44.0); MEAN CORPUSCULAR HEMOGLOBIN 27.4 pg (27.0-33.0); MEAN CORPUSCULAR HGB CONC 31.2 g/dl (32.0-36.5); MEAN CORPUSCULAR VOLUME 87.9 fl (80.0-96.0); MONO # 0.8 10^3/uL (0.0-0.8); MONO % 6.7 % (2.0-8.0); NEUTROPHILS # 7.5 10^3/uL (1.5-8.5); NEUTROPHILS % 63.5 % (36.0-66.0); PLATELET COUNT, AUTOMATED 178 10^3/uL (150-450); RED BLOOD COUNT 5.03 10^6/uL (4.00-5.40); WHITE BLOOD COUNT 11.8 10^3/uL (4.0-10.0)
[2021-10-20 07:11] LABS: CALCIUM LEVEL 8.8 MG/DL (8.8-10.2); CREATININE FOR GFR 0.96 MG/DL (0.55-1.30); GLOMERULAR FILTRATION RATE 59.1 (>32); POTASSIUM SERUM 4.4 MEQ/L (3.5-5.1)
[2021-10-20] MEDS: cloNIDine 0.1MG TABLET PO SCH ×3 (09:00→20:59)
[2021-10-20] MEDS: OMEGA-3 1000MG CAPSULE PO SCH (09:01)
[2021-10-20] MEDS: EZETIMIBE 10MG TABLET (ZETIA) PO SCH (09:01)
[2021-10-20] MEDS: SPIRONOLACTONE 25 MG TAB PO SCH (09:02)
[2021-10-20] MEDS: OLMESARTAN MEDOXOMIL 20 MG TAB (BENICAR) PO SCH (09:02)
[2021-10-20] MEDS: ASPIRIN 81 MG CHEW TABLET PO SCH (09:02)
[2021-10-20] MEDS: CLOPIDOGREL 75 MG TAB PO SCH (09:02)
[2021-10-20] MEDS: ASCORBIC ACID 500 MG TAB PO SCH (09:02)
[2021-10-20] MEDS: PERCOCET 5MG/325MG TAB PO PRN ×3 (09:03→21:00)
[2021-10-20 14:00] VITALS: BP 150/88
[2021-10-20] MEDS: ONDANSETRON 4MG/2ML VIAL IV PRN (20:14)
[2021-10-20 22:00] VITALS: BP 118/79
[2021-10-21] MEDS: ACETAMINOPHEN TAB 650MG DOSE (2X325MG) PO PRN (05:47)
[2021-10-21] MEDS: HEPARIN SOD (PORCINE) 5000UNITS/ML 1ML VIAL/SYRINGE SQ SCH ×3 (05:47→21:01)
[2021-10-21] MEDS: LEVOTHYROXINE 25MCG TABLET (0.025MG) PO SCH (05:48)
[2021-10-21 06:00] VITALS: BP 152/89
[2021-10-21 06:33] LABS: BASO # 0.1 10^3/uL (0.0-0.2); BASO % 0.5 % (0.0-1.0); EOS # 0.2 10^3/uL (0.0-0.5); HEMATOCRIT 48.2 % (36.0-47.0); HEMOGLOBIN 14.8 g/dl (12.0-15.5); LYMPH # 3.3 10^3/uL (1.5-5.0); LYMPH % 27.8 % (24.0-44.0); MEAN CORPUSCULAR HEMOGLOBIN 27.3 pg (27.0-33.0); MEAN CORPUSCULAR HGB CONC 30.7 g/dl (32.0-36.5); MEAN CORPUSCULAR VOLUME 88.9 fl (80.0-96.0); MONO # 0.9 10^3/uL (0.0-0.8); MONO % 7.1 % (2.0-8.0); NEUTROPHILS # 7.5 10^3/uL (1.5-8.5); PLATELET COUNT, AUTOMATED 203 10^3/uL (150-450); RED BLOOD COUNT 5.42 10^6/uL (4.00-5.40)
[2021-10-21 06:48] LABS: CREATININE FOR GFR 1.11 MG/DL (0.55-1.30); POTASSIUM SERUM 4.1 MEQ/L (3.5-5.1)
[2021-10-21] MEDS: OMEGA-3 1000MG CAPSULE PO SCH (08:35)
[2021-10-21] MEDS: CLOPIDOGREL 75 MG TAB PO SCH (08:35)
[2021-10-21] MEDS: ASPIRIN 81 MG CHEW TABLET PO SCH (08:35)
[2021-10-21] MEDS: EZETIMIBE 10MG TABLET (ZETIA) PO SCH (08:36)
[2021-10-21] MEDS: ASCORBIC ACID 500 MG TAB PO SCH (08:36)
[2021-10-21] MEDS: OLMESARTAN MEDOXOMIL 20 MG TAB (BENICAR) PO SCH (08:36)
[2021-10-21] MEDS: PERCOCET 5MG/325MG TAB PO PRN (08:36)
[2021-10-21] MEDS: SPIRONOLACTONE 25 MG TAB PO SCH (08:36)
[2021-10-21] MEDS: cloNIDine 0.1MG TABLET PO SCH ×2 (08:37→20:01)
[2021-10-21] MEDS: ONDANSETRON 4MG/2ML VIAL IV PRN (18:00)
[2021-10-21] MEDS: METOCLOPRAMIDE INJ 10MG/2ML VIAL (J2765 PER 1) IV PRN (19:58)
[2021-10-22 06:00] VITALS: BP 118/62
[2021-10-22] MEDS: HEPARIN SOD (PORCINE) 5000UNITS/ML 1ML VIAL/SYRINGE SQ SCH ×3 (06:05→20:12)
[2021-10-22] MEDS: ACETAMINOPHEN TAB 650MG DOSE (2X325MG) PO PRN ×2 (06:05→20:12)
[2021-10-22] MEDS: LEVOTHYROXINE 25MCG TABLET (0.025MG) PO SCH (06:05)
[2021-10-22 07:35] LABS: BASO # 0.1 10^3/uL (0.0-0.2); BASO % 0.5 % (0.0-1.0); EOS # 0.1 10^3/uL (0.0-0.5); EOS % 0.7 % (0.0-3.0); HEMATOCRIT 48.3 % (36.0-47.0); HEMOGLOBIN 15.3 g/dl (12.0-15.5); LYMPH # 3.4 10^3/uL (1.5-5.0); LYMPH % 23.5 % (24.0-44.0); MEAN CORPUSCULAR HEMOGLOBIN 27.6 pg (27.0-33.0); MEAN CORPUSCULAR HGB CONC 31.7 g/dl (32.0-36.5); MONO # 0.9 10^3/uL (0.0-0.8); MONO % 6.5 % (2.0-8.0); NEUTROPHILS # 9.8 10^3/uL (1.5-8.5); NEUTROPHILS % 68.4 % (36.0-66.0); PLATELET COUNT, AUTOMATED 230 10^3/uL (150-450); RED BLOOD COUNT 5.55 10^6/uL (4.00-5.40); WHITE BLOOD COUNT 14.3 10^3/uL (4.0-10.0)
[2021-10-22 07:55] LABS: CALCIUM LEVEL 9.1 MG/DL (8.8-10.2); CREATININE FOR GFR 1.04 MG/DL (0.55-1.30); GLOMERULAR FILTRATION RATE 53.9 (>32); POTASSIUM SERUM 4.1 MEQ/L (3.5-5.1)
[2021-10-22] MEDS: ASPIRIN 81 MG CHEW TABLET PO SCH (08:34)
[2021-10-22] MEDS: OMEGA-3 1000MG CAPSULE PO SCH (08:34)
[2021-10-22] MEDS: ASCORBIC ACID 500 MG TAB PO SCH (08:34)
[2021-10-22] MEDS: EZETIMIBE 10MG TABLET (ZETIA) PO SCH (08:34)
[2021-10-22] MEDS: CLOPIDOGREL 75 MG TAB PO SCH (08:34)
[2021-10-22] MEDS: SPIRONOLACTONE 25 MG TAB PO SCH (08:34)
[2021-10-22] MEDS: cloNIDine 0.1MG TABLET PO SCH ×2 (08:34→20:12)
[2021-10-22] MEDS: OLMESARTAN MEDOXOMIL 20 MG TAB (BENICAR) PO SCH (08:37)
[2021-10-22] MEDS: ONDANSETRON 4MG/2ML VIAL IV PRN (18:49)
[2021-10-22] MEDS ORDERED: LACTULOSE 20 GM/30 ML SYRUP UD PO PRN (19:25)
[2021-10-22] MEDS ORDERED: MIRALAX *UNIT DOSE* 17GM PACKET PO PRN (19:25)
[2021-10-22] MEDS ORDERED: SENNA 8.6 MG TAB (SENOKOT) PO PRN (19:25)
[2021-10-22 20:27] VITALS: BP 156/80
[2021-10-23] MEDS ORDERED: ONDANSETRON 4 MG ORAL DISINTEGRATING TAB PO PRN (00:10)
[2021-10-23] MEDS ORDERED: METOCLOPRAMIDE 5 MG TAB PO PRN (00:10)
[2021-10-23 06:00] VITALS: BP 144/82
[2021-10-23 06:02] LABS: BASO # 0.1 10^3/uL (0.0-0.2); BASO % 0.6 % (0.0-1.0); EOS # 0.2 10^3/uL (0.0-0.5); EOS % 1.6 % (0.0-3.0); HEMATOCRIT 46.5 % (36.0-47.0); HEMOGLOBIN 14.7 g/dl (12.0-15.5); LYMPH # 3.6 10^3/uL (1.5-5.0); LYMPH % 25.3 % (24.0-44.0); MEAN CORPUSCULAR HEMOGLOBIN 27.9 pg (27.0-33.0); MEAN CORPUSCULAR HGB CONC 31.6 g/dl (32.0-36.5); MEAN CORPUSCULAR VOLUME 88.2 fl (80.0-96.0); MONO % 6.8 % (2.0-8.0); NEUTROPHILS # 9.2 10^3/uL (1.5-8.5); NEUTROPHILS % 65.1 % (36.0-66.0); PLATELET COUNT, AUTOMATED 226 10^3/uL (150-450); RED BLOOD COUNT 5.27 10^6/uL (4.00-5.40); WHITE BLOOD COUNT 14.2 10^3/uL (4.0-10.0)
[2021-10-23] MEDS: LEVOTHYROXINE 25MCG TABLET (0.025MG) PO SCH (06:06)
[2021-10-23] MEDS: ACETAMINOPHEN TAB 650MG DOSE (2X325MG) PO PRN (06:06)
[2021-10-23] MEDS: HEPARIN SOD (PORCINE) 5000UNITS/ML 1ML VIAL/SYRINGE SQ SCH (06:07)
[2021-10-23 06:24] LABS: CALCIUM LEVEL 9.2 MG/DL (8.8-10.2); CREATININE FOR GFR 1.07 MG/DL (0.55-1.30); GLOMERULAR FILTRATION RATE 52.1 (>32)
[2021-10-23] MEDS: cloNIDine 0.1MG TABLET PO SCH (09:00)
[2021-10-23] MEDS: EZETIMIBE 10MG TABLET (ZETIA) PO SCH (09:02)
[2021-10-23] MEDS: ASPIRIN 81 MG CHEW TABLET PO SCH (09:03)
[2021-10-23 09:06] VITALS: BP 150/90
[2021-10-23] MEDS: OLMESARTAN MEDOXOMIL 20 MG TAB (BENICAR) PO SCH (09:06)
[2021-10-23] MEDS: SPIRONOLACTONE 25 MG TAB PO SCH (09:06)
[2021-10-23] MEDS: CLOPIDOGREL 75 MG TAB PO SCH (09:07)
[2021-10-23] MEDS: ASCORBIC ACID 500 MG TAB PO SCH (09:07)
[2021-10-23] MEDS: OMEGA-3 1000MG CAPSULE PO SCH (09:07)
[2021-10-23] MEDS ORDERED: PERCOCET PO (10:40)
[2021-11-03] MEDS ORDERED: PERC5TAB12 PO (18:15)
[2021-11-03] MEDS ORDERED: EZET10TA21 PO (18:15)
[2021-11-03] MEDS ORDERED: ASCO500T PO (18:15)
[2021-11-03] MEDS ORDERED: LEVO25TA5 PO (18:15)
[2021-11-03] MEDS ORDERED: SPIR-10 PO ×2 (18:15)
[2021-11-03] MEDS ORDERED: MULT1TAB7 PO (18:15)
[2021-11-03] MEDS ORDERED: CLON0.3T PO (18:15)
[2021-11-03] MEDS ORDERED: PLAV1TAB2 PO (18:15)
[2021-11-03] MEDS ORDERED: OLME20TA2 PO (18:15)
[2021-11-03] MEDS ORDERED: VITA200030 PO (18:15)
== END 2021-10-23 13:50 | DRG 493 ==
LOC: M ED 17:18 → EEVIPCON 23:49 → M ED INP 23:49 → ENRESERV 10-17 02:17 → M MS5PR 10-17 04:25
PROVIDERS: ADMIT Family Medicine; ATTEND Internal Medicine
PROC: 0QSK36Z Reposition Left Fibula with Intramedullary Internal Fixation Device, Percutaneous Approach (ICD-10-PCS; 2021-10-17)
PROC: 0QSH36Z Reposition Left Tibia with Intramedullary Internal Fixation Device, Percutaneous Approach (ICD-10-PCS; principal; 2021-10-17 20:00)
DX: S82.852A Displaced trimalleolar fracture of left lower leg, initial encounter for closed fracture (principal); I69.354 Hemiplegia and hemiparesis following cerebral infarction affecting left non-dominant side; I50.32 Chronic diastolic (congestive) heart failure; I11.0 Hypertensive heart disease with heart failure; I49.5 Sick sinus syndrome; K21.9 Gastro-esophageal reflux disease without esophagitis; K44.9 Diaphragmatic hernia without obstruction or gangrene; M17.0 Bilateral primary osteoarthritis of knee; M16.0 Bilateral primary osteoarthritis of hip; M50.30 Other cervical disc degeneration, unspecified cervical region; J45.20 Mild intermittent asthma, uncomplicated; G25.0 Essential tremor; E03.9 Hypothyroidism, unspecified; Z96.652 Presence of left artificial knee joint; Z95.0 Presence of cardiac pacemaker; I48.0 Paroxysmal atrial fibrillation; E78.5 Hyperlipidemia, unspecified; Z95.1 Presence of aortocoronary bypass graft; Z20.822 Contact with and (suspected) exposure to COVID-19; Z79.82 Long term (current) use of aspirin; Z79.02 Long term (current) use of antithrombotics/antiplatelets; Z79.899 Other long term (current) drug therapy; Z88.0 Allergy status to penicillin; Z88.2 Allergy status to sulfonamides; Z88.8 Allergy status to other drugs, medicaments and biological substances; W23.1XXA Caught, crushed, jammed, or pinched between stationary objects, initial encounter; Y92.9 Unspecified place or not applicable; Y93.89 Activity, other specified; Y99.8 Other external cause status; X50.1XXA Overexertion from prolonged static or awkward postures, initial encounter

== ENCOUNTER → 2021-11-03 | Outpatient (CLI) | payer MEDICARE ==
[~2021-11-03] MED LIST changes: +ASCO500T PO; +FLAX100016 PO; +MULT-90 PO; +MULT1TAB7 PO; +OLME20TA2 PO; +PERC5TAB12 PO; +PERCOCET PO; +VITA200015 PO; +VITA200030 PO
--- NOTE | 2021-11-03 14:00 | REP ---
INDICATION: PAIN RT KNEE, RT ANKLE PAIN SURGICAL AFTERCARE LT. COMPARISON: None. TECHNIQUE: AP, lateral, bilateral oblique views of the right and left ankle. FINDINGS: Left ankle demonstrates satisfactory open reduction and fixation for medial and lateral malleolar fractures with intramedullary dieter through the visualized fibula. Overlying postsurgical changes are appreciated. Evaluation is limited by cast material. The right ankle demonstrates satisfactory open reduction and fixation for medial and lateral malleolar fractures with plate and screws over the distal fibula and 2 screws at the medial malleolus. Overlying soft tissue swelling noted. IMPRESSION: Postoperative changes to the bilateral ankles. <Electronically signed by Kushal Ruby > 11/03/21 [id number]
--- NOTE | 2021-11-03 14:03 | REP ---
INDICATION: PAIN RT KNEE, RT ANKLE PAIN SURGICAL AFTERCARE LT. COMPARISON: None TECHNIQUE: AP and lateral views of the right knee FINDINGS: Satisfactory stable appearance and position to the tibial and femoral prosthesis. No evidence for acute fracture or dislocation. IMPRESSION: Satisfactory right knee prosthesis. <Electronically signed by Kushal Ruby > 11/03/21 2080
== END ==
LOC: M SOG 13:16
PROVIDERS: ATTEND Orthopaedic Surgery
DX: Z48.89 Encounter for other specified surgical aftercare (principal); M25.571 Pain in right ankle and joints of right foot; M25.561 Pain in right knee

== ENCOUNTER → 2021-12-11 | Outpatient (CLI) | payer MEDICARE ==
[2021-12-11 17:18] LABS: BASO # 0.1 10^3/uL (0.0-0.2); BASO % 0.5 % (0.0-1.0); EOS # 0.4 10^3/uL (0.0-0.5); EOS % 3.6 % (0.0-3.0); HEMATOCRIT 48.8 % (36.0-47.0); LYMPH # 3.2 10^3/uL (1.5-5.0); LYMPH % 27.4 % (24.0-44.0); MEAN CORPUSCULAR HGB CONC 30.7 g/dl (32.0-36.5); MEAN CORPUSCULAR VOLUME 87.9 fl (80.0-96.0); MONO # 0.6 10^3/uL (0.0-0.8); MONO % 4.9 % (2.0-8.0); NEUTROPHILS # 7.4 10^3/uL (1.5-8.5); NEUTROPHILS % 63.1 % (36.0-66.0); PLATELET COUNT, AUTOMATED 228 10^3/uL (150-450); RED BLOOD COUNT 5.55 10^6/uL (4.00-5.40); WHITE BLOOD COUNT 11.7 10^3/uL (4.0-10.0)
[2021-12-11 17:51] LABS: ALBUMIN 3.6 GM/DL (3.2-5.2); ALT/SGPT 17 U/L (12-78); BILIRUBIN,TOTAL 0.4 MG/DL (0.2-1.0); BLOOD UREA NITROGEN 18 MG/DL (7-18); CALCIUM LEVEL 9.5 MG/DL (8.8-10.2); CARBON DIOXIDE LEVEL 32 MEQ/L (21-32); CHLORIDE LEVEL 107 MEQ/L (98-107); CREATININE FOR GFR 0.92 MG/DL (0.55-1.30); FERRITIN 90 NG/ML (8-252); GLOMERULAR FILTRATION RATE > 60.0 (>32); GLUCOSE, FASTING 91 MG/DL (70-100); NT-PRO BNP 149 PG/ML (<450); POTASSIUM SERUM 4.1 MEQ/L (3.5-5.1); SODIUM LEVEL 145 MEQ/L (136-145); TOTAL PROTEIN 7.1 GM/DL (6.4-8.2)
== END ==
LOC: M PLALAB 15:54
PROVIDERS: ATTEND Family Medicine
DX: I10 Essential (primary) hypertension (principal); R06.00 Dyspnea, unspecified; I48.91 Unspecified atrial fibrillation

== ENCOUNTER → 2022-01-12 | Outpatient (CLI) | payer MEDICARE | LOC: M SOG 08:11 | PROVIDERS: ATTEND Orthopaedic Surgery | DX: Z47.89 Encounter for other orthopedic aftercare (principal) ==

== ENCOUNTER 2022-05-14 05:32 | Inpatient (IN) | payer MEDICARE, MEDICAID ==
[~2022-05-14] VITALS: Ht 160 cm; Wt 98.7 kg
[~2022-05-14 05:32] MED LIST changes: -VITA200015 PO; +VITA200035 PO
[2022-05-14] MEDS ORDERED: hydrALAZINE 20MG/ML 1ML VIAL (J0360 PER 20MG) IV STA (05:45)
[2022-05-14 06:09] LABS: BASO # 0.1 10^3/uL (0.0-0.2); BASO % 0.6 % (0.0-1.0); EOS # 0.3 10^3/uL (0.0-0.5); EOS % 2.6 % (0.0-3.0); HEMATOCRIT 51.2 % (36.0-47.0); HEMOGLOBIN 16.4 g/dl (12.0-15.5); LYMPH # 3.6 10^3/uL (1.5-5.0); LYMPH % 27.7 % (24.0-44.0); MEAN CORPUSCULAR HEMOGLOBIN 26.4 pg (27.0-33.0); MEAN CORPUSCULAR VOLUME 82.3 fl (80.0-96.0); MONO # 0.7 10^3/uL (0.0-0.8); MONO % 5.1 % (2.0-8.0); NEUTROPHILS # 8.2 10^3/uL (1.5-8.5); NEUTROPHILS % 63.5 % (36.0-66.0); PLATELET COUNT, AUTOMATED 189 10^3/uL (150-450); RED BLOOD COUNT 6.22 10^6/uL (4.00-5.40); WHITE BLOOD COUNT 12.9 10^3/uL (4.0-10.0)
[2022-05-14] MEDS ORDERED: LABETALOL 100MG/20ML VIAL IV STA (06:21)
[2022-05-14] MEDS ORDERED: CLON0.3T PO (06:37)
[2022-05-14 06:43] LABS: BLOOD UREA NITROGEN 18 MG/DL (7-18); CALCIUM LEVEL 7.8 MG/DL (8.8-10.2); CARBON DIOXIDE LEVEL 24 MEQ/L (21-32); CHLORIDE LEVEL 114 MEQ/L (98-107); CK-MB VALUE MASS 1.4 NG/ML (<3.6); CREATININE FOR GFR 0.59 MG/DL (0.55-1.30); GLOMERULAR FILTRATION RATE > 60.0 (>32); GLUCOSE, FASTING 92 MG/DL (70-100); MAGNESIUM LEVEL 1.9 MG/DL (1.8-2.4); MB/CK RELATIVE INDEX 1.19 (< OR =4); POTASSIUM SERUM 3.4 MEQ/L (3.5-5.1); SODIUM LEVEL 146 MEQ/L (136-145)
[2022-05-14] MEDS ORDERED: diazePAM 10MG/2ML SYRINGE (J3360 PER 5MG) IV ONE (06:55)
[2022-05-14] MEDS ORDERED: NS 500 ML IV ONE (07:05)
[2022-05-14] MEDS ORDERED: ISOVUE-370 76% 100ML VIAL As Ordered ONE (07:17)
[2022-05-14 07:42] LABS: CK-MB VALUE MASS 1.6 NG/ML (<3.6); MB/CK RELATIVE INDEX 3.81 (< OR =4)
[2022-05-14] MEDS: DOCUSATE SODIUM 100MG CAPSULE PO SCH ×2 (09:00→21:47)
[2022-05-14] MEDS ORDERED: hydrALAZINE 20MG/ML 1ML VIAL (J0360 PER 20MG) IV ONE (10:00)
[2022-05-14] MEDS ORDERED: VITATAB73 PO (10:13)
[2022-05-14] MEDS ORDERED: ALOE VER PO (10:13)
[2022-05-14] MEDS ORDERED: [UNRECOGNIZED DRUG - CODE] (10:13)
[2022-05-14] MEDS ORDERED: FLAX1CAP5 PO (10:13)
[2022-05-14] MEDS ORDERED: ASPI325T57 PO (10:13)
[2022-05-14] MEDS ORDERED: DICL5SOL3 TOP (10:26)
[2022-05-14] MEDS ORDERED: amLODIPine 5 MG TAB PO ONE (10:30)
[2022-05-14] MEDS ORDERED: HOME MED LIST COMPLETE! XX SCH (10:30)
[2022-05-14] MEDS ORDERED: ACETAMINOPHEN TAB 650MG DOSE (2X325MG) PO PRN (10:30)
[2022-05-14] MEDS ORDERED: POTASSIUM CHLORIDE 10MEQ SR TABLET PO ONE (11:00)
[2022-05-14 11:45] VITALS: BP 163/101
[2022-05-14] MEDS: **hydrALAZINE HCL** 25 MG TAB PO SCH ×2 (12:14→17:29)
[2022-05-14 14:00] VITALS: BP 116/77
[2022-05-14] MEDS ORDERED: OLMESARTAN MEDOXOMIL 20 MG TAB (BENICAR) PO SCH (21:00)
[2022-05-14] MEDS: NYSTATIN 100,000 UNITS/GM TOPICAL PWD 15 GM TOP SCH (21:47)
[2022-05-14] MEDS: ASPIRIN 325 MG TAB PO SCH (21:47)
[2022-05-14] MEDS: CLOPIDOGREL 75 MG TAB PO SCH (21:47)
[2022-05-14] MEDS: LEVOTHYROXINE 25MCG TABLET (0.025MG) PO SCH (21:47)
[2022-05-14] MEDS: EZETIMIBE 10MG TABLET (ZETIA) PO SCH (21:50)
[2022-05-15] VITALS (9 sets, daily range): BP systolic 103–190; BP diastolic 56–104
[2022-05-15] MEDS: **hydrALAZINE HCL** 25 MG TAB PO SCH ×4 (05:17→17:34)
[2022-05-15] MEDS: amLODIPine 5 MG TAB PO SCH (08:02)
[2022-05-15] MEDS: NYSTATIN 100,000 UNITS/GM TOPICAL PWD 15 GM TOP SCH ×2 (08:02→20:54)
[2022-05-15] MEDS: DOCUSATE SODIUM 100MG CAPSULE PO SCH ×2 (08:03→20:51)
[2022-05-15 08:12] LABS: BASO # 0.1 10^3/uL (0.0-0.2); BASO % 0.5 % (0.0-1.0); EOS # 0.2 10^3/uL (0.0-0.5); EOS % 1.8 % (0.0-3.0); HEMATOCRIT 52.1 % (36.0-47.0); HEMOGLOBIN 16.2 g/dl (12.0-15.5); LYMPH # 3.5 10^3/uL (1.5-5.0); LYMPH % 27.7 % (24.0-44.0); MEAN CORPUSCULAR HEMOGLOBIN 25.6 pg (27.0-33.0); MEAN CORPUSCULAR HGB CONC 31.1 g/dl (32.0-36.5); MEAN CORPUSCULAR VOLUME 82.4 fl (80.0-96.0); MONO # 0.6 10^3/uL (0.0-0.8); NEUTROPHILS # 8.1 10^3/uL (1.5-8.5); NEUTROPHILS % 64.7 % (36.0-66.0); PLATELET COUNT, AUTOMATED 204 10^3/uL (150-450); RED BLOOD COUNT 6.32 10^6/uL (4.00-5.40); WHITE BLOOD COUNT 12.5 10^3/uL (4.0-10.0)
[2022-05-15 08:33] LABS: BLOOD UREA NITROGEN 21 MG/DL (7-18); CALCIUM LEVEL 9.2 MG/DL (8.8-10.2); CARBON DIOXIDE LEVEL 25 MEQ/L (21-32); CHLORIDE LEVEL 113 MEQ/L (98-107); CREATININE FOR GFR 0.75 MG/DL (0.55-1.30); GLOMERULAR FILTRATION RATE > 60.0 (>32); GLUCOSE, FASTING 111 MG/DL (70-100); SODIUM LEVEL 146 MEQ/L (136-145)
[2022-05-15] MEDS ORDERED: CLON0.3T PO (10:30)
[2022-05-15] MEDS ORDERED: OLME20TA2 PO (10:35)
[2022-05-15] MEDS ORDERED: HYDR25TA PO (10:35)
[2022-05-15] MEDS: cloNIDine 0.1MG TABLET PO SCH ×2 (10:48→20:51)
[2022-05-15] MEDS: ASPIRIN 325 MG TAB PO SCH (20:49)
[2022-05-15] MEDS: EZETIMIBE 10MG TABLET (ZETIA) PO SCH (20:50)
[2022-05-15] MEDS: OLMESARTAN MEDOXOMIL 20 MG TAB (BENICAR) PO SCH (20:50)
[2022-05-15] MEDS: LEVOTHYROXINE 25MCG TABLET (0.025MG) PO SCH (20:51)
[2022-05-15] MEDS: CLOPIDOGREL 75 MG TAB PO SCH (20:51)
[2022-05-16] MEDS: **hydrALAZINE HCL** 25 MG TAB PO SCH ×4 (05:24→18:00)
[2022-05-16 05:51] VITALS: BP 130/80
[2022-05-16] MEDS: amLODIPine 5 MG TAB PO SCH ×2 (08:24→08:27)
[2022-05-16] MEDS: cloNIDine 0.1MG TABLET PO SCH ×2 (08:25→20:20)
[2022-05-16] MEDS: NYSTATIN 100,000 UNITS/GM TOPICAL PWD 15 GM TOP SCH ×2 (08:25→20:20)
[2022-05-16] MEDS: DOCUSATE SODIUM 100MG CAPSULE PO SCH ×2 (08:25→20:23)
[2022-05-16 15:31] VITALS: BP 156/82
[2022-05-16] MEDS: CLOPIDOGREL 75 MG TAB PO SCH (20:17)
[2022-05-16] MEDS: EZETIMIBE 10MG TABLET (ZETIA) PO SCH (20:17)
[2022-05-16] MEDS: ASPIRIN 325 MG TAB PO SCH (20:17)
[2022-05-16] MEDS: LEVOTHYROXINE 25MCG TABLET (0.025MG) PO SCH (20:17)
[2022-05-16] MEDS: OLMESARTAN MEDOXOMIL 20 MG TAB (BENICAR) PO SCH (20:20)
[2022-05-16 20:21] VITALS: BP 147/88
[2022-05-17] MEDS: **hydrALAZINE HCL** 25 MG TAB PO SCH ×5 (05:20→23:55)
[2022-05-17 06:04] VITALS: BP 142/76
[2022-05-17] MEDS: DOCUSATE SODIUM 100MG CAPSULE PO SCH ×2 (07:58→19:20)
[2022-05-17] MEDS: cloNIDine 0.1MG TABLET PO SCH ×2 (08:20→19:57)
[2022-05-17] MEDS: NYSTATIN 100,000 UNITS/GM TOPICAL PWD 15 GM TOP SCH ×2 (08:21→19:57)
[2022-05-17 14:00] VITALS: BP 124/56
[2022-05-17 18:45] VITALS: BP 144/76
[2022-05-17] MEDS: OLMESARTAN MEDOXOMIL 20 MG TAB (BENICAR) PO SCH (19:56)
[2022-05-17] MEDS: ASPIRIN 325 MG TAB PO SCH (19:56)
[2022-05-17] MEDS: EZETIMIBE 10MG TABLET (ZETIA) PO SCH (19:57)
[2022-05-17] MEDS: LEVOTHYROXINE 25MCG TABLET (0.025MG) PO SCH (19:57)
[2022-05-17] MEDS: CLOPIDOGREL 75 MG TAB PO SCH (19:57)
[2022-05-17] MEDS ORDERED: ONDANSETRON 4MG ORAL DISINTEGRATING TAB PO PRN (23:10)
[2022-05-18 05:22] VITALS: BP 129/70
[2022-05-18] MEDS: **hydrALAZINE HCL** 25 MG TAB PO SCH (05:45)
[2022-05-18 09:00] VITALS: BP 135/63
[2022-05-18] MEDS: cloNIDine 0.1MG TABLET PO SCH (09:00)
[2022-05-18] MEDS: DOCUSATE SODIUM 100MG CAPSULE PO SCH (09:00)
[2022-05-18] MEDS: NYSTATIN 100,000 UNITS/GM TOPICAL PWD 15 GM TOP SCH (09:03)
== END 2022-05-18 10:27 | disposition home or self-care (01) | DRG 305 ==
LOC: M ED 05:32 → M ED INP 05:33 → ENRESERV 10:52 → M MSPAV 11:43 → OBSVTOIN 05-17 08:42
PROVIDERS: ADMIT Internal Medicine Nephrology; ATTEND Internal Medicine Nephrology
DX: I16.0 Hypertensive urgency (principal); I44.2 Atrioventricular block, complete; I69.354 Hemiplegia and hemiparesis following cerebral infarction affecting left non-dominant side; I50.32 Chronic diastolic (congestive) heart failure; I25.10 Atherosclerotic heart disease of native coronary artery without angina pectoris; I48.0 Paroxysmal atrial fibrillation; R07.89 Other chest pain; Z87.81 Personal history of (healed) traumatic fracture; I13.0 Hypertensive heart and chronic kidney disease with heart failure and stage 1 through stage 4 chronic kidney disease, or unspecified chronic kidney disease; R91.8 Other nonspecific abnormal finding of lung field; K21.9 Gastro-esophageal reflux disease without esophagitis; K44.9 Diaphragmatic hernia without obstruction or gangrene; J45.20 Mild intermittent asthma, uncomplicated; I65.23 Occlusion and stenosis of bilateral carotid arteries; E03.9 Hypothyroidism, unspecified; M50.123 Cervical disc disorder at C6-C7 level with radiculopathy; M50.122 Cervical disc disorder at C5-C6 level with radiculopathy; R13.10 Dysphagia, unspecified; E55.9 Vitamin D deficiency, unspecified; J30.89 Other allergic rhinitis; N18.30 Chronic kidney disease, stage 3 unspecified; R27.0 Ataxia, unspecified; I87.2 Venous insufficiency (chronic) (peripheral); Z90.49 Acquired absence of other specified parts of digestive tract; Z95.0 Presence of cardiac pacemaker; Z98.41 Cataract extraction status, right eye; Z96.653 Presence of artificial knee joint, bilateral; Z98.42 Cataract extraction status, left eye; Z96.1 Presence of intraocular lens; Z79.82 Long term (current) use of aspirin; Z79.02 Long term (current) use of antithrombotics/antiplatelets; Z95.1 Presence of aortocoronary bypass graft; Z79.899 Other long term (current) drug therapy; Z88.0 Allergy status to penicillin; Z88.2 Allergy status to sulfonamides; Z88.8 Allergy status to other drugs, medicaments and biological substances; Z88.1 Allergy status to other antibiotic agents

== ENCOUNTER 2022-05-24 14:04 | Observation (INO) | payer MEDICAID, MEDICARE ==
[~2022-05-24] VITALS: Ht 160 cm; Wt 97.7 kg
[~2022-05-24 14:04] MED LIST changes: +ALOE VER PO; +ASPI325T57 PO; -BENI40TA26 PO; +DICL5SOL3 TOP; +FLAX1CAP5 PO; +HYDR25TA PO; +OLME40TA56 PO; +SIMV-252 PO; +VITATAB73 PO; -ZOCO10TA PO; +[UNRECOGNIZED DRUG - CODE]
[2022-05-24] MEDS ORDERED: hydrALAZINE 20MG/ML 1ML VIAL (J0360 PER 20MG) IV ONE (23:05)
[2022-05-24 23:33] LABS: BASO # 0.1 10^3/uL (0.0-0.2); BASO % 0.6 % (0.0-1.0); EOS # 0.4 10^3/uL (0.0-0.5); EOS % 2.9 % (0.0-3.0); HEMOGLOBIN 16.2 g/dl (12.0-15.5); LYMPH % 24.1 % (24.0-44.0); MEAN CORPUSCULAR HEMOGLOBIN 26.6 pg (27.0-33.0); MEAN CORPUSCULAR HGB CONC 31.7 g/dl (32.0-36.5); MONO # 0.6 10^3/uL (0.0-0.8); MONO % 4.5 % (2.0-8.0); NEUTROPHILS # 8.4 10^3/uL (1.5-8.5); NEUTROPHILS % 67.2 % (36.0-66.0); PLATELET COUNT, AUTOMATED 217 10^3/uL (150-450); RED BLOOD COUNT 6.08 10^6/uL (4.00-5.40); WHITE BLOOD COUNT 12.5 10^3/uL (4.0-10.0)
[2022-05-24 23:40] LABS: HEMATOCRIT 51.1 % (36.0-47.0)
[2022-05-25 00:07] LABS: BLOOD UREA NITROGEN 15 MG/DL (7-18); CALCIUM LEVEL 9.7 MG/DL (8.8-10.2); CARBON DIOXIDE LEVEL 31 MEQ/L (21-32); CHLORIDE LEVEL 106 MEQ/L (98-107); CREATININE FOR GFR 0.88 MG/DL (0.55-1.30); GLOMERULAR FILTRATION RATE > 60.0 (>32); GLUCOSE, FASTING 93 MG/DL (70-100); NT-PRO BNP 149 PG/ML (<450); POTASSIUM SERUM 4.1 MEQ/L (3.5-5.1); SODIUM LEVEL 141 MEQ/L (136-145)
[2022-05-25 00:11] LABS: CK-MB VALUE MASS 1.2 NG/ML (<3.6); MB/CK RELATIVE INDEX 2.86 (< OR =4)
[2022-05-25 00:27] LABS: RSV AMPLIFICATION NEGATIVE (NEGATIVE)
[2022-05-25] MEDS ORDERED: ACETAMINOPHEN TAB 650MG DOSE (2X325MG) PO PRN (03:35)
[2022-05-25] MEDS ORDERED: CLON0.3T PO ×2 (04:47→12:02)
[2022-05-25] MEDS ORDERED: FLAX100012 PO (04:49)
[2022-05-25] MEDS ORDERED: OLME20TA2 PO (04:55)
[2022-05-25] MEDS ORDERED: RA B1TAB2 PO (04:55)
[2022-05-25] MEDS ORDERED: HOME MED LIST COMPLETE! XX SCH (04:55)
[2022-05-25] MEDS ORDERED: PERCOCET PO (04:55)
[2022-05-25] MEDS ORDERED: HYDR-3910 PO ×2 (04:55→12:02)
[2022-05-25] MEDS ORDERED: **hydrALAZINE** 50 MG TAB PO SCH (06:00)
[2022-05-25] MEDS ORDERED: LEVOTHYROXINE 25MCG TABLET (0.025MG) PO SCH (06:00)
[2022-05-25 06:43] VITALS: BP 156/81
[2022-05-25 07:01] LABS: BLOOD UREA NITROGEN 16 MG/DL (7-18); CALCIUM LEVEL 9.4 MG/DL (8.8-10.2); CARBON DIOXIDE LEVEL 29 MEQ/L (21-32); CHLORIDE LEVEL 105 MEQ/L (98-107); CREATININE FOR GFR 0.81 MG/DL (0.55-1.30); GLOMERULAR FILTRATION RATE > 60.0 (>32); GLUCOSE, FASTING 102 MG/DL (70-100); POTASSIUM SERUM 3.8 MEQ/L (3.5-5.1); SODIUM LEVEL 140 MEQ/L (136-145)
[2022-05-25] MEDS ORDERED: PERCOCET 5MG/325MG TAB PO PRN (07:10)
[2022-05-25 07:45] VITALS: BP 144/67
[2022-05-25] MEDS ORDERED: ASPIRIN 325 MG TAB PO SCH (09:00)
[2022-05-25] MEDS ORDERED: OLMESARTAN MEDOXOMIL 20 MG TAB (BENICAR) PO SCH (09:00)
[2022-05-25] MEDS ORDERED: cloNIDine 0.1MG TABLET PO SCH (09:00)
[2022-05-25 09:22] VITALS: BP 144/67
[2022-05-25] MEDS ORDERED: EZETIMIBE 10MG TABLET (ZETIA) PO SCH (21:00)
[2022-05-25] MEDS ORDERED: CLOPIDOGREL 75 MG TAB PO SCH (21:00)
[2022-05-25] MEDS ORDERED: ASCORBIC ACID 500 MG TAB PO SCH (21:00)
[2022-06-01 01:06] LABS: METANEPHRINE PLASMA 16.6 pg/mL (0.0-88.0); NORMETANEPHRINE PLASMA 48.6 pg/mL (0.0-297.2)
[2022-06-03 19:10] LABS: DEHYDROEPIANDROSTERONE SULFATE 97.2 ug/dL (13.9-142.8)
== END 2022-05-25 14:00 | disposition home or self-care (01) ==
LOC: M ED 14:04 → M ED INP 14:05
PROVIDERS: ADMIT Internal Medicine; ATTEND Internal Medicine
DX: I16.0 Hypertensive urgency (principal); I25.10 Atherosclerotic heart disease of native coronary artery without angina pectoris; I48.0 Paroxysmal atrial fibrillation; I44.2 Atrioventricular block, complete; I69.354 Hemiplegia and hemiparesis following cerebral infarction affecting left non-dominant side; R20.0 Anesthesia of skin; E03.9 Hypothyroidism, unspecified; I49.5 Sick sinus syndrome; I13.0 Hypertensive heart and chronic kidney disease with heart failure and stage 1 through stage 4 chronic kidney disease, or unspecified chronic kidney disease; Z95.0 Presence of cardiac pacemaker; K21.9 Gastro-esophageal reflux disease without esophagitis; K44.9 Diaphragmatic hernia without obstruction or gangrene; G25.0 Essential tremor; R27.0 Ataxia, unspecified; M50.122 Cervical disc disorder at C5-C6 level with radiculopathy; M50.123 Cervical disc disorder at C6-C7 level with radiculopathy; R13.10 Dysphagia, unspecified; I87.2 Venous insufficiency (chronic) (peripheral); N18.30 Chronic kidney disease, stage 3 unspecified; E55.9 Vitamin D deficiency, unspecified; I50.30 Unspecified diastolic (congestive) heart failure; Z96.653 Presence of artificial knee joint, bilateral; Z98.61 Coronary angioplasty status; Z98.62 Peripheral vascular angioplasty status; Z79.899 Other long term (current) drug therapy; Z79.82 Long term (current) use of aspirin; Z79.02 Long term (current) use of antithrombotics/antiplatelets; Z88.0 Allergy status to penicillin; Z88.2 Allergy status to sulfonamides; Z88.1 Allergy status to other antibiotic agents; Z91.030 Bee allergy status; J30.89 Other allergic rhinitis
CPT/HCPCS: 36415; 70450; 71045; 76775; 80048; 82088; 82550; 82553; 82627; 83835; 83880; 84244; 84484; 85025; 87631; 93005; 93041; 93975; 94760; 96374; 99285; G0378; J0360

== ENCOUNTER 2022-06-05 14:39 | Emergency (ER) | payer MEDICARE ==
[~2022-06-05] VITALS: Ht 160 cm; Wt 97.7 kg
[~2022-06-05 14:39] MED LIST changes: +BENI40TA26 PO; +FLAX100012 PO; +HYDR-3910 PO; -OLME40TA56 PO; +RA B1TAB2 PO; -SIMV-252 PO; +ZOCO10TA PO
[2022-06-05 15:49] LABS: BASO # 0.1 10^3/uL (0.0-0.2); BASO % 0.7 % (0.0-1.0); EOS # 0.2 10^3/uL (0.0-0.5); EOS % 2.7 % (0.0-3.0); HEMATOCRIT 47.3 % (36.0-47.0); LYMPH # 2.3 10^3/uL (1.5-5.0); LYMPH % 25.7 % (24.0-44.0); MEAN CORPUSCULAR HEMOGLOBIN 26.9 pg (27.0-33.0); MEAN CORPUSCULAR HGB CONC 31.7 g/dl (32.0-36.5); MEAN CORPUSCULAR VOLUME 84.9 fl (80.0-96.0); MONO # 0.5 10^3/uL (0.0-0.8); MONO % 5.2 % (2.0-8.0); NEUTROPHILS # 5.7 10^3/uL (1.5-8.5); NEUTROPHILS % 65.4 % (36.0-66.0); PLATELET COUNT, AUTOMATED 183 10^3/uL (150-450); RED BLOOD COUNT 5.57 10^6/uL (4.00-5.40); WHITE BLOOD COUNT 8.8 10^3/uL (4.0-10.0)
[2022-06-05 15:59] LABS: INR 1.05; PROTHROMBIN TIME 14.1 SECONDS (12.7-14.5)
[2022-06-05 16:00] LABS: PARTIAL THROMBOPLASTIN TIME 31.1 SECONDS (25.9-37.0)
[2022-06-05 16:12] LABS: CK-MB VALUE MASS 1.2 NG/ML (<3.6); MB/CK RELATIVE INDEX 2.5 (< OR =4)
[2022-06-05 17:57] VITALS: BP 146/62
== END 2022-06-05 18:56 | disposition home or self-care (01) ==
LOC: EDBD 14:39 → M ED 14:39
DX: M50.30 Other cervical disc degeneration, unspecified cervical region (principal); M48.02 Spinal stenosis, cervical region; M54.12 Radiculopathy, cervical region; I10 Essential (primary) hypertension; J44.9 Chronic obstructive pulmonary disease, unspecified; J45.909 Unspecified asthma, uncomplicated; I25.10 Atherosclerotic heart disease of native coronary artery without angina pectoris; I25.2 Old myocardial infarction; Z86.73 Personal history of transient ischemic attack (TIA), and cerebral infarction without residual deficits; Z95.0 Presence of cardiac pacemaker; Z79.899 Other long term (current) drug therapy; Z79.82 Long term (current) use of aspirin; Z79.01 Long term (current) use of anticoagulants; Z88.0 Allergy status to penicillin; Z88.1 Allergy status to other antibiotic agents; Z88.2 Allergy status to sulfonamides; Z88.8 Allergy status to other drugs, medicaments and biological substances; Z91.030 Bee allergy status

== ENCOUNTER 2022-06-11 15:56 | Inpatient (IN) | payer MEDICARE ==
[~2022-06-11] VITALS: Ht 160 cm; Wt 93.1 kg
[~2022-06-11 15:56] MED LIST changes: +SIMV-252 PO; -ZOCO10TA PO
[2022-06-11 18:40] LABS: BASO % 0.2 % (0.0-1.0); HEMATOCRIT 47.5 % (36.0-47.0); LYMPH # 1.4 10^3/uL (1.5-5.0); LYMPH % 9.1 % (24.0-44.0); MEAN CORPUSCULAR HEMOGLOBIN 27.3 pg (27.0-33.0); MEAN CORPUSCULAR HGB CONC 31.6 g/dl (32.0-36.5); MEAN CORPUSCULAR VOLUME 86.4 fl (80.0-96.0); MONO # 0.5 10^3/uL (0.0-0.8); NEUTROPHILS # 13.5 10^3/uL (1.5-8.5); NEUTROPHILS % 87.2 % (36.0-66.0); PLATELET COUNT, AUTOMATED 187 10^3/uL (150-450); WHITE BLOOD COUNT 15.5 10^3/uL (4.0-10.0)
[2022-06-11 19:16] LABS: ALBUMIN 3.7 GM/DL (3.2-5.2); ALT/SGPT 22 U/L (12-78); BILIRUBIN,DIRECT 0.1 MG/DL (0.0-0.2); BILIRUBIN,TOTAL 0.6 MG/DL (0.2-1.0); BLOOD UREA NITROGEN 27 MG/DL (7-18); CALCIUM LEVEL 9.7 MG/DL (8.8-10.2); CARBON DIOXIDE LEVEL 31 MEQ/L (21-32); CHLORIDE LEVEL 110 MEQ/L (98-107); GLOMERULAR FILTRATION RATE > 60.0 (>32); GLUCOSE, FASTING 127 MG/DL (70-100); POTASSIUM SERUM 4.4 MEQ/L (3.5-5.1); SODIUM LEVEL 145 MEQ/L (136-145); TOTAL PROTEIN 6.5 GM/DL (6.4-8.2)
[2022-06-11 19:27] LABS: RSV AMPLIFICATION NEGATIVE (NEGATIVE)
[2022-06-11] MEDS ORDERED: ONDANSETRON 4MG ORAL DISINTEGRATING TAB PO PRN (21:50)
[2022-06-11] MEDS ORDERED: MOM 30ML SUSPENSION UDC PO PRN (21:50)
[2022-06-11] MEDS ORDERED: MAALOX 30 ML SUSP *UDC PO PRN (21:50)
[2022-06-11] MEDS ORDERED: PERCOCET 5MG/325MG TAB PO PRN (21:50)
[2022-06-11] MEDS ORDERED: ACETAMINOPHEN TAB 650MG DOSE (2X325MG) PO PRN (21:50)
[2022-06-11] MEDS ORDERED: SPIR-10 PO (22:48)
[2022-06-11] MEDS ORDERED: PRED20TA PO (22:48)
[2022-06-11] MEDS ORDERED: CLON0.3T PO (22:48)
[2022-06-11] MEDS ORDERED: HOME MED LIST COMPLETE! XX SCH (22:50)
[2022-06-11 22:56] LABS: INR 1.07; PROTHROMBIN TIME 14.3 SECONDS (12.7-14.5)
[2022-06-11 22:57] LABS: PARTIAL THROMBOPLASTIN TIME 28.2 SECONDS (25.9-37.0)
[2022-06-11] MEDS ORDERED: **hydrALAZINE** 50 MG TAB PO ONE (23:00)
[2022-06-11] MEDS ORDERED: OLMESARTAN MEDOXOMIL 20 MG TAB (BENICAR) PO ONE (23:00)
[2022-06-11] MEDS ORDERED: cloNIDine 0.1MG TABLET PO ONE (23:00)
[2022-06-11] MEDS ORDERED: NITROGLYCERIN 0.4 MG SUBL TABLET SL PRN (23:10)
[2022-06-12] MEDS: LEVOTHYROXINE 25MCG TABLET (0.025MG) PO SCH (06:00)
[2022-06-12 07:09] LABS: BASO % 0.2 % (0.0-1.0); EOS # 0.1 10^3/uL (0.0-0.5); EOS % 0.5 % (0.0-3.0); HEMATOCRIT 45.3 % (36.0-47.0); HEMOGLOBIN 14.3 g/dl (12.0-15.5); LYMPH % 21.7 % (24.0-44.0); MEAN CORPUSCULAR HEMOGLOBIN 26.9 pg (27.0-33.0); MEAN CORPUSCULAR HGB CONC 31.6 g/dl (32.0-36.5); MEAN CORPUSCULAR VOLUME 85.3 fl (80.0-96.0); MONO # 0.9 10^3/uL (0.0-0.8); MONO % 6.7 % (2.0-8.0); NEUTROPHILS # 9.7 10^3/uL (1.5-8.5); NEUTROPHILS % 70.2 % (36.0-66.0); PLATELET COUNT, AUTOMATED 189 10^3/uL (150-450); RED BLOOD COUNT 5.31 10^6/uL (4.00-5.40); WHITE BLOOD COUNT 13.8 10^3/uL (4.0-10.0)
[2022-06-12 07:40] LABS: BLOOD UREA NITROGEN 29 MG/DL (7-18); CALCIUM LEVEL 9.1 MG/DL (8.8-10.2); CARBON DIOXIDE LEVEL 28 MEQ/L (21-32); CHLORIDE LEVEL 109 MEQ/L (98-107); GLOMERULAR FILTRATION RATE > 60.0 (>32); GLUCOSE, FASTING 103 MG/DL (70-100); MAGNESIUM LEVEL 2.5 MG/DL (1.8-2.4); NT-PRO BNP 168 PG/ML (<450); POTASSIUM SERUM 5.8 MEQ/L (3.5-5.1); SODIUM LEVEL 141 MEQ/L (136-145)
[2022-06-12] MEDS: ASPIRIN 325 MG TAB PO SCH (08:08)
[2022-06-12] MEDS: cloNIDine 0.1MG TABLET PO SCH ×3 (08:10→23:14)
[2022-06-12 09:12] VITALS: BP 101/54
[2022-06-12] MEDS: SPIRONOLACTONE 25 MG TAB PO SCH (09:20)
[2022-06-12 12:00] VITALS: BP 138/67
[2022-06-12] MEDS: predniSONE 20 MG TAB PO SCH ×2 (14:49→23:07)
[2022-06-12 19:25] VITALS: BP 105/53
[2022-06-12] MEDS: CLOPIDOGREL 75 MG TAB PO SCH (23:06)
[2022-06-12] MEDS: NYSTATIN 100,000 UNITS/GM TOPICAL PWD 15 GM TOP PRN (23:07)
[2022-06-12] MEDS: OLMESARTAN MEDOXOMIL 20 MG TAB (BENICAR) PO SCH (23:14)
[2022-06-12] MEDS: PERCOCET 5MG/325MG TAB PO PRN (23:17)
[2022-06-12] MEDS: EZETIMIBE 10MG TABLET (ZETIA) PO SCH (23:20)
[2022-06-13 04:03] VITALS: BP 164/82
[2022-06-13] MEDS: **hydrALAZINE HCL** 25 MG TAB PO PRN ×2 (05:19→11:20)
[2022-06-13] MEDS: LEVOTHYROXINE 25MCG TABLET (0.025MG) PO SCH (05:51)
[2022-06-13 07:32] LABS: HEMATOCRIT 46.8 % (36.0-47.0); HEMOGLOBIN 14.6 g/dl (12.0-15.5); MEAN CORPUSCULAR HEMOGLOBIN 26.6 pg (27.0-33.0); MEAN CORPUSCULAR HGB CONC 31.2 g/dl (32.0-36.5); MEAN CORPUSCULAR VOLUME 85.4 fl (80.0-96.0); PLATELET COUNT, AUTOMATED 167 10^3/uL (150-450); RED BLOOD COUNT 5.48 10^6/uL (4.00-5.40); WHITE BLOOD COUNT 12.5 10^3/uL (4.0-10.0)
[2022-06-13 08:01] LABS: ALBUMIN 3.1 GM/DL (3.2-5.2); ALT/SGPT 18 U/L (12-78); BILIRUBIN,TOTAL 0.5 MG/DL (0.2-1.0); BLOOD UREA NITROGEN 34 MG/DL (7-18); CALCIUM LEVEL 8.9 MG/DL (8.8-10.2); CARBON DIOXIDE LEVEL 27 MEQ/L (21-32); CHLORIDE LEVEL 111 MEQ/L (98-107); GLOMERULAR FILTRATION RATE > 60.0 (>32); GLUCOSE, FASTING 146 MG/DL (70-100); POTASSIUM SERUM 4.4 MEQ/L (3.5-5.1); SODIUM LEVEL 144 MEQ/L (136-145); TOTAL PROTEIN 5.9 GM/DL (6.4-8.2)
[2022-06-13] MEDS: ASPIRIN 325 MG TAB PO SCH (09:28)
[2022-06-13] MEDS: cloNIDine 0.1MG TABLET PO SCH ×3 (09:32→22:52)
[2022-06-13] MEDS: SPIRONOLACTONE 25 MG TAB PO SCH (09:33)
[2022-06-13] MEDS: predniSONE 20 MG TAB PO SCH ×2 (09:33→22:53)
[2022-06-13 12:00] VITALS: BP 169/72
[2022-06-13 20:13] VITALS: BP 122/58
[2022-06-13] MEDS: OLMESARTAN MEDOXOMIL 20 MG TAB (BENICAR) PO SCH (22:53)
[2022-06-13] MEDS: EZETIMIBE 10MG TABLET (ZETIA) PO SCH (22:53)
[2022-06-13] MEDS: CLOPIDOGREL 75 MG TAB PO SCH (22:53)
[2022-06-14 04:11] VITALS: BP 148/65
[2022-06-14] MEDS: LEVOTHYROXINE 25MCG TABLET (0.025MG) PO SCH (05:36)
[2022-06-14] MEDS: SPIRONOLACTONE 25 MG TAB PO SCH (09:05)
[2022-06-14] MEDS: ASPIRIN 325 MG TAB PO SCH (09:05)
[2022-06-14] MEDS: predniSONE 20 MG TAB PO SCH ×2 (09:05→21:06)
[2022-06-14] MEDS: cloNIDine 0.1MG TABLET PO SCH ×3 (09:06→21:08)
[2022-06-14] MEDS: OLMESARTAN MEDOXOMIL 20 MG TAB (BENICAR) PO SCH (21:07)
[2022-06-14] MEDS: CLOPIDOGREL 75 MG TAB PO SCH (21:08)
[2022-06-14] MEDS: EZETIMIBE 10MG TABLET (ZETIA) PO SCH (21:08)
[2022-06-15] MEDS: PERCOCET 5MG/325MG TAB PO PRN ×2 (01:52→20:48)
[2022-06-15] MEDS: **hydrALAZINE HCL** 25 MG TAB PO PRN (03:57)
[2022-06-15 04:00] VITALS: BP 166/71
[2022-06-15] MEDS ORDERED: PROMETHAZINE 25 MG TAB PO PRN (04:50)
[2022-06-15] MEDS: LEVOTHYROXINE 25MCG TABLET (0.025MG) PO SCH (05:25)
[2022-06-15] MEDS: predniSONE 20 MG TAB PO SCH ×2 (08:39→20:42)
[2022-06-15] MEDS: ASPIRIN 325 MG TAB PO SCH (08:39)
[2022-06-15] MEDS: SPIRONOLACTONE 25 MG TAB PO SCH (08:40)
[2022-06-15] MEDS: cloNIDine 0.1MG TABLET PO SCH ×3 (08:40→20:43)
[2022-06-15] MEDS: EZETIMIBE 10MG TABLET (ZETIA) PO SCH (20:38)
[2022-06-15] MEDS: CLOPIDOGREL 75 MG TAB PO SCH (20:42)
[2022-06-15] MEDS: OLMESARTAN MEDOXOMIL 20 MG TAB (BENICAR) PO SCH (20:42)
[2022-06-16] MEDS: LEVOTHYROXINE 25MCG TABLET (0.025MG) PO SCH (05:43)
[2022-06-16 06:00] VITALS: BP 207/91
[2022-06-16 07:53] VITALS: BP 148/70
[2022-06-16] MEDS: predniSONE 20 MG TAB PO SCH ×2 (08:36→20:55)
[2022-06-16] MEDS: ASPIRIN 325 MG TAB PO SCH (08:36)
[2022-06-16] MEDS: cloNIDine 0.1MG TABLET PO SCH ×3 (08:37→20:55)
[2022-06-16] MEDS: SPIRONOLACTONE 25 MG TAB PO SCH (08:37)
[2022-06-16 20:54] VITALS: BP 125/80
[2022-06-16] MEDS: OLMESARTAN MEDOXOMIL 20 MG TAB (BENICAR) PO SCH (20:54)
[2022-06-16] MEDS: CLOPIDOGREL 75 MG TAB PO SCH (20:55)
[2022-06-16] MEDS: EZETIMIBE 10MG TABLET (ZETIA) PO SCH (20:55)
[2022-06-17 06:00] VITALS: BP 169/75
[2022-06-17] MEDS: LEVOTHYROXINE 25MCG TABLET (0.025MG) PO SCH (06:09)
[2022-06-17] MEDS: SPIRONOLACTONE 25 MG TAB PO SCH (08:27)
[2022-06-17] MEDS: ASPIRIN 325 MG TAB PO SCH (08:27)
[2022-06-17] MEDS: cloNIDine 0.1MG TABLET PO SCH ×3 (08:28→21:11)
[2022-06-17] MEDS: predniSONE 20 MG TAB PO SCH ×2 (08:28→21:07)
[2022-06-17] MEDS: CLOPIDOGREL 75 MG TAB PO SCH (21:07)
[2022-06-17] MEDS: OLMESARTAN MEDOXOMIL 20 MG TAB (BENICAR) PO SCH (21:11)
[2022-06-17] MEDS: EZETIMIBE 10MG TABLET (ZETIA) PO SCH (21:11)
[2022-06-18 04:00] VITALS: BP 137/63
[2022-06-18] MEDS: LEVOTHYROXINE 25MCG TABLET (0.025MG) PO SCH (05:26)
[2022-06-18] MEDS: predniSONE 20 MG TAB PO SCH ×2 (08:57→20:50)
[2022-06-18] MEDS: ASPIRIN 325 MG TAB PO SCH (08:58)
[2022-06-18] MEDS: SPIRONOLACTONE 25 MG TAB PO SCH (08:58)
[2022-06-18] MEDS: cloNIDine 0.1MG TABLET PO SCH ×3 (09:03→20:50)
[2022-06-18] MEDS: EZETIMIBE 10MG TABLET (ZETIA) PO SCH (20:50)
[2022-06-18] MEDS: OLMESARTAN MEDOXOMIL 20 MG TAB (BENICAR) PO SCH (20:50)
[2022-06-18] MEDS: CLOPIDOGREL 75 MG TAB PO SCH (20:50)
[2022-06-18] MEDS: PERCOCET 5MG/325MG TAB PO PRN (20:54)
[2022-06-19 04:00] VITALS: BP 178/84
[2022-06-19] MEDS: LEVOTHYROXINE 25MCG TABLET (0.025MG) PO SCH (06:47)
[2022-06-19] MEDS: ASPIRIN 325 MG TAB PO SCH (08:36)
[2022-06-19] MEDS: predniSONE 20 MG TAB PO SCH ×2 (08:37→20:05)
[2022-06-19] MEDS: SPIRONOLACTONE 25 MG TAB PO SCH (08:37)
[2022-06-19] MEDS: cloNIDine 0.1MG TABLET PO SCH ×3 (08:37→20:05)
[2022-06-19] MEDS: EZETIMIBE 10MG TABLET (ZETIA) PO SCH (20:05)
[2022-06-19] MEDS: OLMESARTAN MEDOXOMIL 20 MG TAB (BENICAR) PO SCH (20:05)
[2022-06-19] MEDS: CLOPIDOGREL 75 MG TAB PO SCH (20:05)
[2022-06-19] MEDS: PERCOCET 5MG/325MG TAB PO PRN (20:06)
[2022-06-20 04:00] VITALS: BP 172/86
[2022-06-20] MEDS: LEVOTHYROXINE 25MCG TABLET (0.025MG) PO SCH (05:03)
[2022-06-20] MEDS: ASPIRIN 325 MG TAB PO SCH (09:24)
[2022-06-20] MEDS: SPIRONOLACTONE 25 MG TAB PO SCH (09:24)
[2022-06-20] MEDS: cloNIDine 0.1MG TABLET PO SCH ×3 (09:24→20:58)
[2022-06-20] MEDS: predniSONE 20 MG TAB PO SCH ×2 (09:24→20:59)
[2022-06-20] MEDS: **hydrALAZINE HCL** 25 MG TAB PO PRN (09:25)
[2022-06-20 16:56] VITALS: BP 131/63
[2022-06-20] MEDS: EZETIMIBE 10MG TABLET (ZETIA) PO SCH (20:58)
[2022-06-20] MEDS: OLMESARTAN MEDOXOMIL 20 MG TAB (BENICAR) PO SCH (20:58)
[2022-06-20] MEDS: CLOPIDOGREL 75 MG TAB PO SCH (20:59)
[2022-06-21 04:00] VITALS: BP 186/84
[2022-06-21] MEDS: **hydrALAZINE HCL** 25 MG TAB PO PRN (04:40)
[2022-06-21] MEDS: LEVOTHYROXINE 25MCG TABLET (0.025MG) PO SCH (05:14)
[2022-06-21] MEDS: ASPIRIN 325 MG TAB PO SCH (08:43)
[2022-06-21] MEDS: predniSONE 20 MG TAB PO SCH ×2 (08:43→20:53)
[2022-06-21] MEDS: SPIRONOLACTONE 25 MG TAB PO SCH (08:43)
[2022-06-21] MEDS: cloNIDine 0.1MG TABLET PO SCH ×3 (08:45→20:53)
[2022-06-21 20:00] VITALS: BP 139/65
[2022-06-21] MEDS: NYSTATIN 100,000 UNITS/GM TOPICAL PWD 15 GM TOP PRN (20:51)
[2022-06-21] MEDS: EZETIMIBE 10MG TABLET (ZETIA) PO SCH (20:53)
[2022-06-21] MEDS: OLMESARTAN MEDOXOMIL 20 MG TAB (BENICAR) PO SCH (20:53)
[2022-06-21] MEDS: CLOPIDOGREL 75 MG TAB PO SCH (20:54)
[2022-06-22 04:14] VITALS: BP 170/82
[2022-06-22] MEDS: LEVOTHYROXINE 25MCG TABLET (0.025MG) PO SCH (05:01)
[2022-06-22] MEDS: **hydrALAZINE HCL** 25 MG TAB PO PRN (05:01)
[2022-06-22 06:58] VITALS: BP 140/82
[2022-06-22] MEDS: ASPIRIN 325 MG TAB PO SCH (08:59)
[2022-06-22] MEDS: predniSONE 20 MG TAB PO SCH ×2 (08:59→20:07)
[2022-06-22] MEDS: SPIRONOLACTONE 25 MG TAB PO SCH (08:59)
[2022-06-22] MEDS: cloNIDine 0.1MG TABLET PO SCH ×3 (09:04→23:17)
[2022-06-22 12:00] VITALS: BP 146/72
[2022-06-22 14:11] VITALS: BP 136/72
[2022-06-22 15:30] VITALS: BP 127/78
[2022-06-22] MEDS: SENOKOT S TAB PO SCH (20:08)
[2022-06-22] MEDS: CLOPIDOGREL 75 MG TAB PO SCH (20:08)
[2022-06-22] MEDS: EZETIMIBE 10MG TABLET (ZETIA) PO SCH (20:08)
[2022-06-22] MEDS: OLMESARTAN MEDOXOMIL 20 MG TAB (BENICAR) PO SCH (20:14)
[2022-06-22 21:00] VITALS: BP 141/61
[2022-06-22] MEDS ORDERED: SENOKOT S TAB PO SCH (21:00)
[2022-06-23] MEDS: LEVOTHYROXINE 25MCG TABLET (0.025MG) PO SCH (05:50)
[2022-06-23 06:00] VITALS: BP 158/75
[2022-06-23 08:46] VITALS: BP 118/60
[2022-06-23] MEDS: SPIRONOLACTONE 25 MG TAB PO SCH (08:46)
[2022-06-23] MEDS: SENOKOT S TAB PO SCH (08:46)
[2022-06-23] MEDS: cloNIDine 0.1MG TABLET PO SCH (08:46)
[2022-06-23] MEDS: ASPIRIN 325 MG TAB PO SCH (08:46)
[2022-06-23] MEDS ORDERED: SENN-52 PO (11:27)
== END 2022-06-23 12:14 | DRG 563 ==
LOC: EDBD 15:56 → M ED 15:56 → M ED INP 21:49 → ENRESERV 06-12 08:16 → M 4MAIN 06-12 08:55 → M MSPAV 06-22 15:26
PROVIDERS: ADMIT Internal Medicine; ATTEND Family Medicine
DX: S93.402A Sprain of unspecified ligament of left ankle, initial encounter (principal); I50.32 Chronic diastolic (congestive) heart failure; I13.0 Hypertensive heart and chronic kidney disease with heart failure and stage 1 through stage 4 chronic kidney disease, or unspecified chronic kidney disease; I44.2 Atrioventricular block, complete; I25.10 Atherosclerotic heart disease of native coronary artery without angina pectoris; I48.0 Paroxysmal atrial fibrillation; K21.9 Gastro-esophageal reflux disease without esophagitis; J45.909 Unspecified asthma, uncomplicated; G25.0 Essential tremor; E03.9 Hypothyroidism, unspecified; N18.30 Chronic kidney disease, stage 3 unspecified; Z96.653 Presence of artificial knee joint, bilateral; Z87.81 Personal history of (healed) traumatic fracture; Z90.49 Acquired absence of other specified parts of digestive tract; Z95.5 Presence of coronary angioplasty implant and graft; Z98.41 Cataract extraction status, right eye; Z98.42 Cataract extraction status, left eye; Z96.1 Presence of intraocular lens; I16.0 Hypertensive urgency; E78.5 Hyperlipidemia, unspecified; Z79.82 Long term (current) use of aspirin; Z79.899 Other long term (current) drug therapy; Z86.73 Personal history of transient ischemic attack (TIA), and cerebral infarction without residual deficits; Z79.02 Long term (current) use of antithrombotics/antiplatelets; Z79.890 Hormone replacement therapy; Z95.0 Presence of cardiac pacemaker; Z88.0 Allergy status to penicillin; Z88.2 Allergy status to sulfonamides; Z88.1 Allergy status to other antibiotic agents; Z88.8 Allergy status to other drugs, medicaments and biological substances; Z91.030 Bee allergy status; X50.1XXA Overexertion from prolonged static or awkward postures, initial encounter; Y93.89 Activity, other specified; Y99.8 Other external cause status; Y92.012 Bathroom of single-family (private) house as the place of occurrence of the external cause

== ENCOUNTER → 2022-08-05 | Outpatient (REF) | payer MEDICARE, MEDICAID ==
[~2022-08-05] MED LIST changes: -BENI40TA26 PO; +OLME40TA56 PO; +PRED20TA PO; +SENN-52 PO
== END ==
LOC: SKLAB4 14:56
PROVIDERS: ATTEND Nurse Practitioner Family
DX: M25.572 Pain in left ankle and joints of left foot (principal)

== ENCOUNTER → 2022-08-12 | Outpatient (CLI) | payer MEDICARE, MEDICAID | LOC: M SOG 08:30 | PROVIDERS: ATTEND Orthopaedic Surgery | DX: M25.562 Pain in left knee (principal) ==

== ENCOUNTER 2022-09-08 12:34 | Emergency (ER) | payer MEDICARE, MEDICAID ==
[~2022-09-08] VITALS: Ht 160 cm; Wt 98.2 kg
[2022-09-08] MEDS ORDERED: cloNIDine 0.1MG TABLET PO ONE (17:50)
[2022-09-08 18:11] LABS: BASO # 0.1 10^3/uL (0.0-0.2); BASO % 0.7 % (0.0-1.0); EOS # 0.3 10^3/uL (0.0-0.5); EOS % 2.4 % (0.0-3.0); HEMATOCRIT 51.5 % (36.0-47.0); HEMOGLOBIN 16.1 g/dl (12.0-15.5); LYMPH # 3.9 10^3/uL (1.5-5.0); LYMPH % 31.4 % (24.0-44.0); MEAN CORPUSCULAR HEMOGLOBIN 26.3 pg (27.0-33.0); MEAN CORPUSCULAR HGB CONC 31.3 g/dl (32.0-36.5); MONO # 0.6 10^3/uL (0.0-0.8); NEUTROPHILS # 7.3 10^3/uL (1.5-8.5); NEUTROPHILS % 59.8 % (36.0-66.0); PLATELET COUNT, AUTOMATED 205 10^3/uL (150-450); RED BLOOD COUNT 6.13 10^6/uL (4.00-5.40); WHITE BLOOD COUNT 12.3 10^3/uL (4.0-10.0)
[2022-09-08 18:25] LABS: RSV AMPLIFICATION NEGATIVE (NEGATIVE)
[2022-09-08 18:51] VITALS: BP 192/86
[2022-09-08 19:11] LABS: ALBUMIN 3.7 GM/DL (3.2-5.2); ALT/SGPT 19 U/L (12-78); BILIRUBIN,TOTAL 0.5 MG/DL (0.2-1.0); BLOOD UREA NITROGEN 22 MG/DL (7-18); CALCIUM LEVEL 9.4 MG/DL (8.8-10.2); CARBON DIOXIDE LEVEL 30 MEQ/L (21-32); CHLORIDE LEVEL 104 MEQ/L (98-107); CREATININE FOR GFR 0.86 MG/DL (0.55-1.30); GLOMERULAR FILTRATION RATE > 60.0 (>32); GLUCOSE, FASTING 102 MG/DL (70-100); MAGNESIUM LEVEL 2.1 MG/DL (1.8-2.4); NT-PRO BNP 151 PG/ML (<450); POTASSIUM SERUM 4.4 MEQ/L (3.5-5.1); SODIUM LEVEL 137 MEQ/L (136-145)
== END 2022-09-08 20:04 | disposition home or self-care (01) ==
LOC: M ED 12:34
DX: R25.9 Unspecified abnormal involuntary movements (principal); E86.0 Dehydration; M50.20 Other cervical disc displacement, unspecified cervical region; I25.2 Old myocardial infarction; I10 Essential (primary) hypertension; J44.9 Chronic obstructive pulmonary disease, unspecified; Z86.73 Personal history of transient ischemic attack (TIA), and cerebral infarction without residual deficits; E03.9 Hypothyroidism, unspecified; Z86.718 Personal history of other venous thrombosis and embolism; M54.50 Low back pain, unspecified; Z90.710 Acquired absence of both cervix and uterus; Z88.0 Allergy status to penicillin; Z88.1 Allergy status to other antibiotic agents; Z88.2 Allergy status to sulfonamides; Z88.8 Allergy status to other drugs, medicaments and biological substances; Z91.030 Bee allergy status; E66.9 Obesity, unspecified; Z79.82 Long term (current) use of aspirin; Z79.899 Other long term (current) drug therapy; Z79.890 Hormone replacement therapy

== ENCOUNTER → 2022-11-15 | Outpatient (REF) | payer MEDICARE, MEDICAID ==
[~2022-11-15] MED LIST changes: +CLOP75TA99 PO; -PLAV1TAB2 PO
[2022-11-15 08:53] LABS: HEMATOCRIT 48.6 % (36.0-47.0); HEMOGLOBIN 15.4 g/dl (12.0-15.5); MEAN CORPUSCULAR HEMOGLOBIN 27.2 pg (27.0-33.0); MEAN CORPUSCULAR HGB CONC 31.7 g/dl (32.0-36.5); MEAN CORPUSCULAR VOLUME 85.7 fl (80.0-96.0); PLATELET COUNT, AUTOMATED 178 10^3/uL (150-450); RED BLOOD COUNT 5.67 10^6/uL (4.00-5.40); WHITE BLOOD COUNT 11.9 10^3/uL (4.0-10.0)
[2022-11-15 09:21] LABS: MAGNESIUM LEVEL 1.7 MG/DL (1.8-2.4)
[2022-11-15 09:23] LABS: ALBUMIN 3.3 G/DL (3.2-5.2); ALKALINE PHOSPHATASE 95 U/L (46-116); ALT/SGPT 14 U/L (7.0-40); AST/SGOT 14 U/L (<34); BILIRUBIN,TOTAL 0.4 MG/DL (0.3-1.2); BLOOD UREA NITROGEN 27 MG/DL (9-23); CALCIUM LEVEL 9.6 MG/DL (8.3-10.6); CARBON DIOXIDE LEVEL 25 MMOL/L (20-31); CHLORIDE LEVEL 104 MMOL/L (98-107); CREATININE FOR GFR 0.84 MG/DL (0.55-1.30); GLOMERULAR FILTRATION RATE > 60.0 (>32); GLUCOSE, FASTING 99 MG/DL (74-106); POTASSIUM SERUM 4.4 MMOL/L (3.5-5.1); SODIUM LEVEL 141 MMOL/L (136-145); TOTAL PROTEIN 5.9 G/DL (5.7-8.2)
== END ==
LOC: SKLAB4 08:09
PROVIDERS: ATTEND Nurse Practitioner Adult Health
DX: E03.9 Hypothyroidism, unspecified (principal); I10 Essential (primary) hypertension

== ENCOUNTER → 2022-11-29 | Outpatient (REF) | payer MEDICARE, MEDICAID | LOC: SKLAB4 10:41 | PROVIDERS: ATTEND Internal Medicine | DX: Z45.018 Encounter for adjustment and management of other part of cardiac pacemaker (principal) ==

== ENCOUNTER → 2022-12-14 | Outpatient (CLI) | payer MEDICARE, MEDICAID | LOC: M SOG 12:00 | PROVIDERS: ATTEND Orthopaedic Surgery | DX: M25.562 Pain in left knee (principal) ==

== ENCOUNTER → 2022-12-15 | Outpatient (CLI) | payer MEDICARE | LOC: M PAIN 13:00 | PROVIDERS: ATTEND Anesthesiology | DX: M48.00 Spinal stenosis, site unspecified (principal); M54.2 Cervicalgia; M79.18 Myalgia, other site; I10 Essential (primary) hypertension; J45.20 Mild intermittent asthma, uncomplicated; E03.9 Hypothyroidism, unspecified; Z95.0 Presence of cardiac pacemaker; Z96.652 Presence of left artificial knee joint; Z79.82 Long term (current) use of aspirin; Z79.890 Hormone replacement therapy; Z79.899 Other long term (current) drug therapy ==

== ENCOUNTER → 2023-01-18 | Outpatient (REF) | payer MEDICARE | LOC: SKLAB4 11:37 | PROVIDERS: ATTEND Internal Medicine | DX: Z01.818 Encounter for other preprocedural examination (principal); Z20.822 Contact with and (suspected) exposure to COVID-19 ==

== ENCOUNTER → 2023-01-21 | Outpatient (CLI) | payer MEDICARE ==
[~2023-01-21] MED LIST changes: +BUPIVACAINE HCL 0.25% 10ML VIAL As Ordered ONE; +BUPIVACAINE HCL 0.25% 30ML VIAL As Ordered ONE; +TRIAMCINOLONE ACETONIDE SUSP 40MG/ML 1ML VIAL As Ordered ONE
== END ==
LOC: M PAIN 09:15
PROVIDERS: ATTEND Anesthesiology
DX: M79.18 Myalgia, other site (principal); I10 Essential (primary) hypertension; I49.5 Sick sinus syndrome; Z95.0 Presence of cardiac pacemaker; K21.9 Gastro-esophageal reflux disease without esophagitis; K44.9 Diaphragmatic hernia without obstruction or gangrene; M16.0 Bilateral primary osteoarthritis of hip; M17.0 Bilateral primary osteoarthritis of knee; M47.812 Spondylosis without myelopathy or radiculopathy, cervical region; J45.20 Mild intermittent asthma, uncomplicated; I25.10 Atherosclerotic heart disease of native coronary artery without angina pectoris; E03.9 Hypothyroidism, unspecified; I69.354 Hemiplegia and hemiparesis following cerebral infarction affecting left non-dominant side

== ENCOUNTER → 2023-02-22 | Outpatient (CLI) | payer MEDICARE ==
[~2023-02-22] MED LIST changes: -BUPIVACAINE HCL 0.25% 10ML VIAL As Ordered ONE; -BUPIVACAINE HCL 0.25% 30ML VIAL As Ordered ONE; -TRIAMCINOLONE ACETONIDE SUSP 40MG/ML 1ML VIAL As Ordered ONE
== END ==
LOC: M PAIN 10:30
PROVIDERS: ATTEND Nurse Practitioner Family
DX: M79.12 Myalgia of auxiliary muscles, head and neck (principal); M79.18 Myalgia, other site; Z95.0 Presence of cardiac pacemaker; Z79.890 Hormone replacement therapy; Z79.891 Long term (current) use of opiate analgesic; Z79.899 Other long term (current) drug therapy

== ENCOUNTER → 2023-04-01 | Outpatient (CLI) | payer MEDICARE ==
[~2023-04-01] MED LIST changes: +BUPIVACAINE HCL 0.25% 10ML VIAL As Ordered ONE; +BUPIVACAINE HCL 0.25% 30ML VIAL As Ordered ONE; +TRIAMCINOLONE ACETONIDE SUSP 40MG/ML 1ML VIAL As Ordered ONE
== END ==
LOC: M PAIN 15:15
PROVIDERS: ATTEND Anesthesiology
DX: M79.18 Myalgia, other site (principal); I10 Essential (primary) hypertension; I49.5 Sick sinus syndrome; Z95.0 Presence of cardiac pacemaker; K21.9 Gastro-esophageal reflux disease without esophagitis; K44.9 Diaphragmatic hernia without obstruction or gangrene; M16.0 Bilateral primary osteoarthritis of hip; M17.0 Bilateral primary osteoarthritis of knee; M47.812 Spondylosis without myelopathy or radiculopathy, cervical region; J45.20 Mild intermittent asthma, uncomplicated; I25.10 Atherosclerotic heart disease of native coronary artery without angina pectoris; I65.23 Occlusion and stenosis of bilateral carotid arteries; E03.9 Hypothyroidism, unspecified; G25.0 Essential tremor; Z79.02 Long term (current) use of antithrombotics/antiplatelets; Z79.82 Long term (current) use of aspirin; Z79.891 Long term (current) use of opiate analgesic; Z79.899 Other long term (current) drug therapy
CPT/HCPCS: 20552; J3301

== ENCOUNTER → 2023-05-16 | Outpatient (CLI) | payer MEDICARE ==
[~2023-05-16] MED LIST changes: -BUPIVACAINE HCL 0.25% 10ML VIAL As Ordered ONE; -BUPIVACAINE HCL 0.25% 30ML VIAL As Ordered ONE; -TRIAMCINOLONE ACETONIDE SUSP 40MG/ML 1ML VIAL As Ordered ONE
== END ==
LOC: M PAIN 13:30
PROVIDERS: ATTEND Anesthesiology
DX: M79.18 Myalgia, other site (principal); M54.2 Cervicalgia; I10 Essential (primary) hypertension; J45.20 Mild intermittent asthma, uncomplicated; E03.9 Hypothyroidism, unspecified; Z86.14 Personal history of Methicillin resistant Staphylococcus aureus infection; Z95.0 Presence of cardiac pacemaker; Z96.652 Presence of left artificial knee joint; Z79.82 Long term (current) use of aspirin; Z79.890 Hormone replacement therapy; Z79.899 Other long term (current) drug therapy

== ENCOUNTER 2023-07-04 11:22 | Inpatient (IN) | payer MEDICARE ==
[~2023-07-04] VITALS: Ht 160 cm; Wt 102.6 kg
[2023-07-04 12:37] LABS: BASO # 0.1 10^3/uL (0.0-0.2); BASO % 0.5 % (0.0-1.0); EOS # 0.3 10^3/uL (0.0-0.5); EOS % 2.8 % (0.0-3.0); HEMOGLOBIN 13.9 g/dl (12.0-15.5); LYMPH # 3.3 10^3/uL (1.5-5.0); LYMPH % 26.7 % (24.0-44.0); MEAN CORPUSCULAR HEMOGLOBIN 29.1 pg (27.0-33.0); MEAN CORPUSCULAR HGB CONC 30.9 g/dl (32.0-36.5); MEAN CORPUSCULAR VOLUME 94.3 fl (80.0-96.0); MONO # 0.7 10^3/uL (0.0-0.8); MONO % 5.5 % (2.0-8.0); NEUTROPHILS # 7.7 10^3/uL (1.5-8.5); NEUTROPHILS % 63.4 % (36.0-66.0); PLATELET COUNT, AUTOMATED 192 10^3/uL (150-450); RED BLOOD COUNT 4.77 10^6/uL (4.00-5.40); WHITE BLOOD COUNT 12.2 10^3/uL (4.0-10.0)
[2023-07-04] MEDS ORDERED: MED REC IN PROGRESS XX SCH (12:40)
[2023-07-04 12:51] LABS: CPK CREATINE PHOSPHOKINASE 19 U/L (34-145)
[2023-07-04 12:52] LABS: ALBUMIN 3.3 G/DL (3.2-5.2); ALKALINE PHOSPHATASE 82 U/L (46-116); ALT/SGPT 12 U/L (7.0-40); AST/SGOT < 8 U/L (<34); BILIRUBIN,DIRECT 0.1 MG/DL (<0.4); BILIRUBIN,TOTAL 0.3 MG/DL (0.3-1.2); BLOOD UREA NITROGEN 40 MG/DL (9-23); CALCIUM LEVEL 9.4 MG/DL (8.3-10.6); CARBON DIOXIDE LEVEL 27 MMOL/L (20-31); CHLORIDE LEVEL 105 MMOL/L (98-107); CK-MB VALUE MASS < 1.0 NG/ML (<3.6); GLOMERULAR FILTRATION RATE 30.5 (>32); GLUCOSE, FASTING 106 MG/DL (74-106); MB/CK RELATIVE INDEX 5.26 (< OR =4); POTASSIUM SERUM 5.4 MMOL/L (3.5-5.1); SODIUM LEVEL 137 MMOL/L (136-145)
[2023-07-04 12:54] LABS: THYROID STIMULATING HORMONE 2.248 uIU/ML (0.55-4.78)
[2023-07-04 13:02] LABS: RSV AMPLIFICATION NEGATIVE (NEGATIVE)
[2023-07-04] MEDS ORDERED: HumuLIN R (REGULAR) INSULIN (NovoLIN R) **100U/ML** PER UNIT IV ONE (13:10)
[2023-07-04] MEDS ORDERED: DEXTROSE 50% 50ML SYRINGE IV STA (13:10)
[2023-07-04] MEDS ORDERED: CALCIUM GLUCONATE 1,000 MG in D5W MINI-BAG PLUS 100 ML IV ONE (13:10)
[2023-07-04] MEDS ORDERED: ISOVUE-370 76% 100ML VIAL As Ordered ONE (13:14)
[2023-07-04] MEDS ORDERED: NS 1,000 ML IV SCH (13:15)
[2023-07-04] MEDS ORDERED: LevoFLOXacin IV 750 MG in IV 1 EA IV ONE (13:20)
[2023-07-04] MEDS ORDERED: DULO1CAP5 PO (13:37)
[2023-07-04] MEDS ORDERED: DIPH-435 PO (13:37)
[2023-07-04] MEDS ORDERED: LIDO1ADH10 TOP (13:37)
[2023-07-04] MEDS ORDERED: AMLO1TAB24 PO (13:37)
[2023-07-04] MEDS ORDERED: NYST1POW9 TOP (13:37)
[2023-07-04] MEDS ORDERED: HOME MED LIST COMPLETE! XX SCH (13:40)
[2023-07-04] MEDS ORDERED: ACETAMINOPHEN TAB 650MG DOSE (2X325MG) PO PRN (15:10)
[2023-07-04] MEDS ORDERED: NITROGLYCERIN 0.4MG SUBL TABLET SL PRN (15:55)
[2023-07-04 16:23] LABS: PROCALCITONIN <0.04 ng/ml
[2023-07-04] MEDS ORDERED: MAG SULF 1GM/100ML (MAG RUN) 1 GM in IV 1 EA IV ONE (16:30)
[2023-07-04] MEDS: ALBUTEROL 90 MCG/ACT 8GM HFA INHALER INH SCH ×2 (16:32→20:13)
[2023-07-04 17:43] LABS: INR 1.03; PROTHROMBIN TIME 13.2 SECONDS (12.5-14.5)
[2023-07-04 18:04] VITALS: BP 160/65; TEMP 96.6; O2SAT 96
[2023-07-04 19:37] VITALS: BP 110/66; TEMP 97.3; O2SAT 97
[2023-07-04] MEDS ORDERED: CLOPIDOGREL 75 MG TAB PO SCH (21:00)
[2023-07-04] MEDS: diphenhydrAMINE 50MG CAP PO SCH (22:08)
[2023-07-04] MEDS: SENOKOT S TAB PO SCH (22:09)
[2023-07-04] MEDS: APIXABAN 2.5 MG TAB (ELIQUIS) PO SCH (22:09)
[2023-07-04] MEDS: EZETIMIBE 10MG TABLET (ZETIA) PO SCH (22:09)
[2023-07-04 23:26] VITALS: BP 144/61; TEMP 97; O2SAT 96
[2023-07-05] VITALS (9 sets, daily range): BP systolic 78–136; BP diastolic 46–72; TEMP 97.9–101; O2SAT 90–96
[2023-07-05] MEDS: ALBUTEROL 90 MCG/ACT 8GM HFA INHALER INH SCH ×4 (01:10→19:22)
[2023-07-05] MEDS: LEVOTHYROXINE 25MCG TABLET (0.025MG) PO SCH (05:55)
[2023-07-05 06:02] LABS: HEMATOCRIT 48.9 % (36.0-47.0); HEMOGLOBIN 15.2 g/dl (12.0-15.5); MEAN CORPUSCULAR HEMOGLOBIN 28.8 pg (27.0-33.0); MEAN CORPUSCULAR HGB CONC 31.1 g/dl (32.0-36.5); MEAN CORPUSCULAR VOLUME 92.8 fl (80.0-96.0); PLATELET COUNT, AUTOMATED 221 10^3/uL (150-450); RED BLOOD COUNT 5.27 10^6/uL (4.00-5.40)
[2023-07-05 06:23] LABS: C REACTIVE PROTEIN QUANTITATIV 2.7 MG/DL (<1.0); CREATININE FOR GFR 1.58 MG/DL (0.55-1.30); GLOMERULAR FILTRATION RATE 33.2 (>32); MAGNESIUM LEVEL 1.7 MG/DL (1.8-2.4)
[2023-07-05] MEDS ORDERED: NS 250 ML IV ONE (08:15)
[2023-07-05] MEDS: APIXABAN 2.5 MG TAB (ELIQUIS) PO SCH ×2 (08:45→20:26)
[2023-07-05] MEDS: ASCORBIC ACID 500 MG TAB PO SCH (08:46)
[2023-07-05] MEDS: DULoxetine 30MG CAPSULE (CYMBALTA) PO SCH (08:46)
[2023-07-05] MEDS: SENOKOT S TAB PO SCH ×2 (08:46→20:26)
[2023-07-05] MEDS: ASPIRIN 81MG ENTERIC TABLET PO SCH (08:46)
[2023-07-05] MEDS: MAG SULF 1GM/100ML (MAG RUN) 1 GM in IV 1 EA IV SCH ×2 (08:47→10:25)
[2023-07-05] MEDS: NS 1,000 ML IV SCH (08:47)
[2023-07-05] MEDS ORDERED: ASPIRIN 325 MG TAB PO SCH (09:00)
[2023-07-05] MEDS ORDERED: SOD POLYSTYRENE SULFONATE SUSP 15GM 60ML UD PO ONE (09:00)
[2023-07-05] MEDS ORDERED: RIVAROXABAN 10MG TAB (XARELTO) PO SCH (09:00)
[2023-07-05] MEDS ORDERED: HumuLIN R (REGULAR) INSULIN (NovoLIN R) **100U/ML** PER UNIT IV STA (09:30)
[2023-07-05] MEDS ORDERED: DEXTROSE 50% 50ML SYRINGE IV STA (09:30)
[2023-07-05] MEDS ORDERED: CALCIUM GLUCONATE 1,000 MG in D5W MINI-BAG PLUS 100 ML IV ONE (10:00)
[2023-07-05 12:48] LABS: CALCIUM LEVEL 10.2 MG/DL (8.3-10.6); CREATININE FOR GFR 1.82 MG/DL (0.55-1.30); GLOMERULAR FILTRATION RATE 28.2 (>32); POTASSIUM SERUM 4.9 MMOL/L (3.5-5.1)
[2023-07-05] MEDS ORDERED: NS 1,000 ML IV ONE ×2 (13:05→14:45)
[2023-07-05] MEDS ORDERED: MOXIFLOXACIN HCL 400 MG in IV 1 EA IV SCH (14:00)
[2023-07-05 14:09] LABS: ABG BASE EXCESS -2.8 (-2.0-2.0); ABG PARTIAL PRESSURE O2 64.7 mmHg (75.0-100.0); ABG TOTAL CO2 24.4 MMOL/L (23.0-31.0); ABG pH (ARTERIAL) 7.337 UNITS (7.350-7.450)
[2023-07-05 14:34] LABS: BASO # 0.1 10^3/uL (0.0-0.2); BASO % 0.5 % (0.0-1.0); EOS # 0.1 10^3/uL (0.0-0.5); EOS % 0.4 % (0.0-3.0); HEMATOCRIT 46.7 % (36.0-47.0); HEMOGLOBIN 14.8 g/dl (12.0-15.5); LYMPH # 2.7 10^3/uL (1.5-5.0); LYMPH % 13.9 % (24.0-44.0); MEAN CORPUSCULAR HEMOGLOBIN 29.7 pg (27.0-33.0); MEAN CORPUSCULAR HGB CONC 31.7 g/dl (32.0-36.5); MEAN CORPUSCULAR VOLUME 93.8 fl (80.0-96.0); MONO # 1.2 10^3/uL (0.0-0.8); MONO % 6.4 % (2.0-8.0); NEUTROPHILS # 14.8 10^3/uL (1.5-8.5); NEUTROPHILS % 77.6 % (36.0-66.0); PLATELET COUNT, AUTOMATED 232 10^3/uL (150-450); RED BLOOD COUNT 4.98 10^6/uL (4.00-5.40); WHITE BLOOD COUNT 19.1 10^3/uL (4.0-10.0)
[2023-07-05 14:36] LABS: ALBUMIN 3.3 G/DL (3.2-5.2); ALKALINE PHOSPHATASE 81 U/L (46-116); ALT/SGPT 11 U/L (7.0-40); AST/SGOT < 8 U/L (<34); BILIRUBIN,TOTAL 0.3 MG/DL (0.3-1.2); BLOOD UREA NITROGEN 43 MG/DL (9-23); CALCIUM LEVEL 10.1 MG/DL (8.3-10.6); CARBON DIOXIDE LEVEL 27 MMOL/L (20-31); CHLORIDE LEVEL 106 MMOL/L (98-107); CREATININE FOR GFR 1.99 MG/DL (0.55-1.30); GLOMERULAR FILTRATION RATE 25.4 (>32); GLUCOSE, FASTING 113 MG/DL (74-106); MAGNESIUM LEVEL 2.5 MG/DL (1.8-2.4); POTASSIUM SERUM 4.8 MMOL/L (3.5-5.1); SODIUM LEVEL 143 MMOL/L (136-145); TOTAL PROTEIN 6.1 G/DL (5.7-8.2)
[2023-07-05 14:41] LABS: CK-MB VALUE MASS 1.4 NG/ML (<3.6)
[2023-07-05 14:46] LABS: MB/CK RELATIVE INDEX 3.33 (< OR =4)
[2023-07-05] MEDS: MEROPENEM INJ 1 GM in IV 1 EA IV SCH (14:52)
[2023-07-05] MEDS ORDERED: MOM 30ML SUSPENSION UDC PO PRN (15:55)
[2023-07-05] MEDS ORDERED: MIRALAX *UNIT DOSE* 17GM PACKET PO PRN (15:55)
[2023-07-05 16:36] LABS: CK-MB VALUE MASS 1.9 NG/ML (<3.6)
[2023-07-05 16:37] LABS: MB/CK RELATIVE INDEX 4.13 (< OR =4)
[2023-07-05] MEDS ORDERED: NS 500 ML IV ONE (19:20)
[2023-07-05] MEDS: EZETIMIBE 10MG TABLET (ZETIA) PO SCH (20:26)
[2023-07-05] MEDS: diphenhydrAMINE 50MG CAP PO SCH (20:26)
[2023-07-06] MEDS: ALBUTEROL 90 MCG/ACT 8GM HFA INHALER INH SCH ×4 (01:11→19:09)
[2023-07-06] MEDS: MEROPENEM INJ 1 GM in IV 1 EA IV SCH (02:02)
[2023-07-06] MEDS: NS 1,000 ML IV SCH ×2 (03:15→13:32)
[2023-07-06 03:40] VITALS: BP 140/74; TEMP 98.5; O2SAT 92
[2023-07-06 04:41] LABS: HEMATOCRIT 44.6 % (36.0-47.0); HEMOGLOBIN 14.2 g/dl (12.0-15.5); MEAN CORPUSCULAR HEMOGLOBIN 29.3 pg (27.0-33.0); MEAN CORPUSCULAR HGB CONC 31.8 g/dl (32.0-36.5); MEAN CORPUSCULAR VOLUME 92.1 fl (80.0-96.0); PLATELET COUNT, AUTOMATED 191 10^3/uL (150-450); RED BLOOD COUNT 4.84 10^6/uL (4.00-5.40); WHITE BLOOD COUNT 15.8 10^3/uL (4.0-10.0)
[2023-07-06 05:08] LABS: CALCIUM LEVEL 8.5 MG/DL (8.3-10.6); CREATININE FOR GFR 1.21 MG/DL (0.55-1.30); GLOMERULAR FILTRATION RATE 45.1 (>32); MAGNESIUM LEVEL 1.9 MG/DL (1.8-2.4); POTASSIUM SERUM 4.8 MMOL/L (3.5-5.1)
[2023-07-06] MEDS: LEVOTHYROXINE 25MCG TABLET (0.025MG) PO SCH (06:08)
[2023-07-06] MEDS: SENOKOT S TAB PO SCH ×2 (08:14→20:46)
[2023-07-06] MEDS: DULoxetine 30MG CAPSULE (CYMBALTA) PO SCH (08:14)
[2023-07-06] MEDS: ASCORBIC ACID 500 MG TAB PO SCH (08:14)
[2023-07-06] MEDS: APIXABAN 2.5 MG TAB (ELIQUIS) PO SCH ×2 (08:14→20:47)
[2023-07-06] MEDS: ASPIRIN 81MG ENTERIC TABLET PO SCH (08:15)
[2023-07-06 08:32] VITALS: BP 139/63; TEMP 98.9; O2SAT 92
[2023-07-06] MEDS ORDERED: LIDOCAINE 2% JELLY 6ML SYRINGE TOP PRN (08:40)
[2023-07-06 12:05] VITALS: BP 135/77; TEMP 98.5; O2SAT 92
[2023-07-06] MEDS ORDERED: LevoFLOXacin IV 750 MG in IV 1 EA IV SCH ×4 (14:00)
[2023-07-06 16:08] VITALS: BP 121/68; TEMP 98; O2SAT 94
[2023-07-06 19:25] VITALS: BP 130/70; TEMP 99; O2SAT 92
[2023-07-06] MEDS: diphenhydrAMINE 50MG CAP PO SCH (20:46)
[2023-07-06] MEDS: EZETIMIBE 10MG TABLET (ZETIA) PO SCH (20:47)
[2023-07-06 23:54] VITALS: BP 140/79; TEMP 99.1; O2SAT 92
[2023-07-07] MEDS: ALBUTEROL 90 MCG/ACT 8GM HFA INHALER INH SCH ×2 (00:40→08:44)
[2023-07-07] MEDS: NS 1,000 ML IV SCH (01:12)
[2023-07-07 03:21] VITALS: BP 110/60; TEMP 98.8; O2SAT 93
[2023-07-07 04:59] LABS: HEMATOCRIT 43.1 % (36.0-47.0); HEMOGLOBIN 13.6 g/dl (12.0-15.5); MEAN CORPUSCULAR HEMOGLOBIN 29.3 pg (27.0-33.0); MEAN CORPUSCULAR HGB CONC 31.6 g/dl (32.0-36.5); MEAN CORPUSCULAR VOLUME 92.9 fl (80.0-96.0); PLATELET COUNT, AUTOMATED 180 10^3/uL (150-450); RED BLOOD COUNT 4.64 10^6/uL (4.00-5.40)
[2023-07-07 05:23] LABS: BLOOD UREA NITROGEN 18 MG/DL (9-23); CALCIUM LEVEL 8.3 MG/DL (8.3-10.6); CARBON DIOXIDE LEVEL 21 MMOL/L (20-31); CHLORIDE LEVEL 114 MMOL/L (98-107); CREATININE FOR GFR 0.91 MG/DL (0.55-1.30); GLOMERULAR FILTRATION RATE > 60.0 (>32); GLUCOSE, FASTING 101 MG/DL (74-106); MAGNESIUM LEVEL 1.4 MG/DL (1.8-2.4); POTASSIUM SERUM 4.2 MMOL/L (3.5-5.1); SODIUM LEVEL 147 MMOL/L (136-145)
[2023-07-07] MEDS: LEVOTHYROXINE 25MCG TABLET (0.025MG) PO SCH (06:15)
[2023-07-07] MEDS ORDERED: MAGNESIUM OXIDE 400MG TAB (MAG-OX) PO ONE (07:00)
[2023-07-07] MEDS: APIXABAN 2.5 MG TAB (ELIQUIS) PO SCH (07:44)
[2023-07-07] MEDS: DULoxetine 30MG CAPSULE (CYMBALTA) PO SCH (07:44)
[2023-07-07] MEDS: ASCORBIC ACID 500 MG TAB PO SCH (07:44)
[2023-07-07] MEDS: ASPIRIN 81MG ENTERIC TABLET PO SCH (07:44)
[2023-07-07] MEDS: SENOKOT S TAB PO SCH (07:44)
[2023-07-07 07:59] VITALS: BP 123/75; TEMP 98.7; O2SAT 93
[2023-07-07] MEDS ORDERED: ELIQ2.5T PO (10:15)
[2023-07-07] MEDS ORDERED: ASPI81TAEC PO (10:15)
[2023-07-07] MEDS ORDERED: LEVO1TAB40 PO (10:15)
[2023-07-08] MEDS ORDERED: LevoFLOXacin 750 MG TABLET PO SCH (15:00)
== END 2023-07-07 13:53 | DRG 871 ==
LOC: M ED 11:22 → EDBD 11:22 → M ED INP 14:48 → M PCU 17:45
PROVIDERS: ADMIT Internal Medicine; ATTEND Internal Medicine
DX: A41.9 Sepsis, unspecified organism (principal); J96.01 Acute respiratory failure with hypoxia; J69.0 Pneumonitis due to inhalation of food and vomit; I44.2 Atrioventricular block, complete; I50.32 Chronic diastolic (congestive) heart failure; I69.354 Hemiplegia and hemiparesis following cerebral infarction affecting left non-dominant side; N17.9 Acute kidney failure, unspecified; N39.0 Urinary tract infection, site not specified; E87.20 Acidosis, unspecified; I10 Essential (primary) hypertension; I25.10 Atherosclerotic heart disease of native coronary artery without angina pectoris; I48.0 Paroxysmal atrial fibrillation; Z95.0 Presence of cardiac pacemaker; K21.9 Gastro-esophageal reflux disease without esophagitis; J45.909 Unspecified asthma, uncomplicated; E03.9 Hypothyroidism, unspecified; R29.810 Facial weakness; E78.5 Hyperlipidemia, unspecified; I49.5 Sick sinus syndrome; K44.9 Diaphragmatic hernia without obstruction or gangrene; I11.0 Hypertensive heart disease with heart failure; F39 Unspecified mood [affective] disorder; E87.5 Hyperkalemia; M16.0 Bilateral primary osteoarthritis of hip; M17.0 Bilateral primary osteoarthritis of knee; B96.1 Klebsiella pneumoniae [K. pneumoniae] as the cause of diseases classified elsewhere; M50.30 Other cervical disc degeneration, unspecified cervical region; G25.0 Essential tremor; Z96.653 Presence of artificial knee joint, bilateral; Z90.49 Acquired absence of other specified parts of digestive tract; Z98.61 Coronary angioplasty status; Z98.41 Cataract extraction status, right eye; Z98.42 Cataract extraction status, left eye; Z96.1 Presence of intraocular lens; Z79.82 Long term (current) use of aspirin; Z79.899 Other long term (current) drug therapy; Z79.890 Hormone replacement therapy; Z88.0 Allergy status to penicillin; Z88.2 Allergy status to sulfonamides; Z88.8 Allergy status to other drugs, medicaments and biological substances; Z91.030 Bee allergy status

== ENCOUNTER → 2023-08-02 | Outpatient (CLI) | payer MEDICARE ==
[~2023-08-02] MED LIST changes: +AMLO1TAB24 PO; +ASPI81TAEC PO; +DIPH-435 PO; +DULO1CAP5 PO; +ELIQ2.5T PO; +LEVO1TAB40 PO; +LIDO1ADH10 TOP; +NYST1POW9 TOP; +TRIAMCINOLONE ACETONIDE SUSP 40MG/ML 1ML VIAL As Ordered ONE
== END ==
LOC: M PAIN 12:45
PROVIDERS: ATTEND Anesthesiology
DX: M79.12 Myalgia of auxiliary muscles, head and neck (principal); M79.18 Myalgia, other site; I10 Essential (primary) hypertension; I49.5 Sick sinus syndrome; Z95.0 Presence of cardiac pacemaker; K21.9 Gastro-esophageal reflux disease without esophagitis; K44.9 Diaphragmatic hernia without obstruction or gangrene; M17.0 Bilateral primary osteoarthritis of knee; M47.812 Spondylosis without myelopathy or radiculopathy, cervical region; J45.20 Mild intermittent asthma, uncomplicated; I65.23 Occlusion and stenosis of bilateral carotid arteries; I25.10 Atherosclerotic heart disease of native coronary artery without angina pectoris; Z86.73 Personal history of transient ischemic attack (TIA), and cerebral infarction without residual deficits; E03.9 Hypothyroidism, unspecified; Z79.891 Long term (current) use of opiate analgesic; Z79.890 Hormone replacement therapy; Z79.899 Other long term (current) drug therapy
CPT/HCPCS: 20553; J0665; J3301

== ENCOUNTER 2023-08-12 10:14 | Observation (INO) | payer MEDICARE ==
[~2023-08-12] VITALS: Ht 160 cm; Wt 98.3 kg
[~2023-08-12 10:14] MED LIST changes: -OLME20TA2 PO; +OLME20TA50 PO; -TRIAMCINOLONE ACETONIDE SUSP 40MG/ML 1ML VIAL As Ordered ONE
[2023-08-12 10:53] LABS: HEMATOCRIT 46.6 % (36.0-47.0); HEMOGLOBIN 14.8 g/dl (12.0-15.5); MEAN CORPUSCULAR HEMOGLOBIN 28.6 pg (27.0-33.0); MEAN CORPUSCULAR HGB CONC 31.8 g/dl (32.0-36.5); PLATELET COUNT, AUTOMATED 222 10^3/uL (150-450); RED BLOOD COUNT 5.18 10^6/uL (4.00-5.40); WHITE BLOOD COUNT 14.4 10^3/uL (4.0-10.0)
[2023-08-12 11:25] LABS: BLOOD UREA NITROGEN 27 MG/DL (9-23); CALCIUM LEVEL 9.1 MG/DL (8.3-10.6); CARBON DIOXIDE LEVEL 32 MMOL/L (20-31); CHLORIDE LEVEL 110 MMOL/L (98-107); CREATININE FOR GFR 0.67 MG/DL (0.55-1.30); GLOMERULAR FILTRATION RATE > 60.0 (>32); GLUCOSE, FASTING 101 MG/DL (74-106); POTASSIUM SERUM 4.5 MMOL/L (3.5-5.1); SODIUM LEVEL 145 MMOL/L (136-145)
[2023-08-12] MEDS ORDERED: MED REC IN PROGRESS XX SCH (14:30)
[2023-08-12 18:48] VITALS: BP 139/78; TEMP 97.2; O2SAT 96
[2023-08-12 19:49] VITALS: BP 141/81; TEMP 97.3; O2SAT 94
[2023-08-12] MEDS ORDERED: MED REC CURRENTLY UNOBTAINABLE XX SCH (20:10)
[2023-08-12] MEDS ORDERED: ACETAMINOPHEN TAB 650MG DOSE (2X325MG) PO PRN (21:50)
[2023-08-13] MEDS ORDERED: HOME MED LIST COMPLETE! XX SCH (00:55)
[2023-08-13 05:17] VITALS: BP 149/77; TEMP 97.2; O2SAT 92
[2023-08-13] MEDS: LEVOTHYROXINE 25MCG TABLET (0.025MG) PO SCH (06:22)
[2023-08-13 06:40] LABS: BASO # 0.1 10^3/uL (0.0-0.2); BASO % 0.6 % (0.0-1.0); EOS # 0.2 10^3/uL (0.0-0.5); EOS % 1.9 % (0.0-3.0); HEMATOCRIT 50.8 % (36.0-47.0); HEMOGLOBIN 15.9 g/dl (12.0-15.5); LYMPH # 2.9 10^3/uL (1.5-5.0); LYMPH % 23.3 % (24.0-44.0); MEAN CORPUSCULAR HEMOGLOBIN 28.8 pg (27.0-33.0); MEAN CORPUSCULAR HGB CONC 31.3 g/dl (32.0-36.5); MEAN CORPUSCULAR VOLUME 91.9 fl (80.0-96.0); MONO # 0.7 10^3/uL (0.0-0.8); MONO % 5.9 % (2.0-8.0); NEUTROPHILS # 8.5 10^3/uL (1.5-8.5); NEUTROPHILS % 67.7 % (36.0-66.0); PLATELET COUNT, AUTOMATED 221 10^3/uL (150-450); RED BLOOD COUNT 5.53 10^6/uL (4.00-5.40); WHITE BLOOD COUNT 12.6 10^3/uL (4.0-10.0)
[2023-08-13 07:00] LABS: BLOOD UREA NITROGEN 21 MG/DL (9-23); CALCIUM LEVEL 9.2 MG/DL (8.3-10.6); CARBON DIOXIDE LEVEL 33 MMOL/L (20-31); CHLORIDE LEVEL 107 MMOL/L (98-107); CREATININE FOR GFR 0.72 MG/DL (0.55-1.30); GLOMERULAR FILTRATION RATE > 60.0 (>32); GLUCOSE, FASTING 98 MG/DL (74-106); MAGNESIUM LEVEL 1.8 MG/DL (1.8-2.4); POTASSIUM SERUM 3.9 MMOL/L (3.5-5.1); SODIUM LEVEL 145 MMOL/L (136-145)
[2023-08-13] MEDS: DULoxetine 30MG CAPSULE (CYMBALTA) PO SCH (09:15)
[2023-08-13] MEDS: amLODIPine 5 MG TAB PO SCH (09:18)
[2023-08-13 10:15] VITALS: BP 150/76
[2023-08-13] MEDS ORDERED: DRIS50003 PO (11:40)
[2023-08-13] MEDS: ENOXAPARIN 40MG/0.4ML SYRINGE (J1650 PER 10MG) SC SCH (13:07)
[2023-08-13 14:00] VITALS: BP 146/80; TEMP 97.5; O2SAT 91
[2023-08-13] MEDS: EZETIMIBE 10MG TABLET (ZETIA) PO SCH (20:19)
[2023-08-14 05:37] VITALS: BP 144/80; TEMP 97.9; O2SAT 91
[2023-08-14] MEDS: LEVOTHYROXINE 25MCG TABLET (0.025MG) PO SCH (05:49)
[2023-08-14] MEDS: DULoxetine 30MG CAPSULE (CYMBALTA) PO SCH (08:40)
[2023-08-14] MEDS: ENOXAPARIN 40MG/0.4ML SYRINGE (J1650 PER 10MG) SC SCH (08:41)
[2023-08-14] MEDS: amLODIPine 5 MG TAB PO SCH (08:41)
[2023-08-14 14:06] VITALS: BP 152/68; TEMP 97.3; O2SAT 92
[2023-08-14] MEDS: EZETIMIBE 10MG TABLET (ZETIA) PO SCH (20:56)
[2023-08-15 05:18] VITALS: BP 148/70; TEMP 97.7; O2SAT 93
[2023-08-15] MEDS: LEVOTHYROXINE 25MCG TABLET (0.025MG) PO SCH (05:55)
[2023-08-15] MEDS: DULoxetine 30MG CAPSULE (CYMBALTA) PO SCH (08:41)
[2023-08-15] MEDS: ENOXAPARIN 40MG/0.4ML SYRINGE (J1650 PER 10MG) SC SCH (08:41)
[2023-08-15] MEDS: amLODIPine 5 MG TAB PO SCH (08:43)
[2023-08-15] MEDS: EZETIMIBE 10MG TABLET (ZETIA) PO SCH (19:33)
[2023-08-16 05:10] VITALS: BP 156/76; TEMP 97.9; O2SAT 93
[2023-08-16] MEDS: LEVOTHYROXINE 25MCG TABLET (0.025MG) PO SCH (05:10)
[2023-08-16] MEDS: amLODIPine 5 MG TAB PO SCH (08:50)
[2023-08-16] MEDS: ENOXAPARIN 40MG/0.4ML SYRINGE (J1650 PER 10MG) SC SCH (08:50)
[2023-08-16] MEDS: DULoxetine 30MG CAPSULE (CYMBALTA) PO SCH (08:50)
[2023-08-16] MEDS: NYSTATIN CREAM 15GM TOP SCH ×2 (10:04→20:48)
[2023-08-16] MEDS: ACETAMINOPHEN 500 MG TAB PO SCH ×3 (10:04→20:47)
[2023-08-16] MEDS: EZETIMIBE 10MG TABLET (ZETIA) PO SCH (20:47)
[2023-08-17] MEDS: LEVOTHYROXINE 25MCG TABLET (0.025MG) PO SCH (05:08)
[2023-08-17] MEDS: DULoxetine 30MG CAPSULE (CYMBALTA) PO SCH (08:06)
[2023-08-17] MEDS: ACETAMINOPHEN 500 MG TAB PO SCH ×3 (08:07→20:54)
[2023-08-17] MEDS: amLODIPine 5 MG TAB PO SCH (08:14)
[2023-08-17] MEDS: NYSTATIN CREAM 15GM TOP SCH ×2 (08:15→20:55)
[2023-08-17] MEDS: ENOXAPARIN 40MG/0.4ML SYRINGE (J1650 PER 10MG) SC SCH (08:15)
[2023-08-17] MEDS: DICLOFENAC EPOLAMINE 1.3% PATCH TOP SCH ×2 (08:54→20:54)
[2023-08-17 11:12] VITALS: BP 140/84
[2023-08-17] MEDS: EZETIMIBE 10MG TABLET (ZETIA) PO SCH (20:54)
[2023-08-18] MEDS: LEVOTHYROXINE 25MCG TABLET (0.025MG) PO SCH (05:03)
[2023-08-18 05:12] VITALS: BP 150/74; TEMP 97.9; O2SAT 94
[2023-08-18 07:15] VITALS: BP 153/79; TEMP 97.7; O2SAT 94
[2023-08-18] MEDS: NYSTATIN CREAM 15GM TOP SCH ×2 (09:00→21:05)
[2023-08-18 09:45] VITALS: BP 143/80; O2SAT 93
[2023-08-18] MEDS: DULoxetine 30MG CAPSULE (CYMBALTA) PO SCH (10:01)
[2023-08-18] MEDS: amLODIPine 5 MG TAB PO SCH (10:02)
[2023-08-18] MEDS: DICLOFENAC EPOLAMINE 1.3% PATCH TOP SCH ×2 (10:03→21:03)
[2023-08-18] MEDS: ACETAMINOPHEN 500 MG TAB PO SCH ×3 (10:03→21:02)
[2023-08-18] MEDS: ENOXAPARIN 40MG/0.4ML SYRINGE (J1650 PER 10MG) SC SCH (10:03)
[2023-08-18 14:15] VITALS: BP 142/70; TEMP 97.7; O2SAT 94
[2023-08-18] MEDS: EZETIMIBE 10MG TABLET (ZETIA) PO SCH (21:02)
[2023-08-19] MEDS: LEVOTHYROXINE 25MCG TABLET (0.025MG) PO SCH (05:41)
[2023-08-19 06:00] VITALS: BP 147/72; TEMP 97.9; O2SAT 95
[2023-08-19] MEDS: ENOXAPARIN 40MG/0.4ML SYRINGE (J1650 PER 10MG) SC SCH (08:34)
[2023-08-19] MEDS: amLODIPine 5 MG TAB PO SCH (08:34)
[2023-08-19] MEDS: ACETAMINOPHEN 500 MG TAB PO SCH ×3 (08:34→20:18)
[2023-08-19] MEDS: DULoxetine 30MG CAPSULE (CYMBALTA) PO SCH (08:34)
[2023-08-19] MEDS: DICLOFENAC EPOLAMINE 1.3% PATCH TOP SCH ×2 (08:35→20:18)
[2023-08-19] MEDS: NYSTATIN CREAM 15GM TOP SCH ×2 (08:35→20:18)
[2023-08-19] MEDS: EZETIMIBE 10MG TABLET (ZETIA) PO SCH (20:17)
[2023-08-20] MEDS: LEVOTHYROXINE 25MCG TABLET (0.025MG) PO SCH (05:11)
[2023-08-20 05:28] VITALS: BP 177/90; TEMP 97.9; O2SAT 93
[2023-08-20] MEDS: amLODIPine 5 MG TAB PO SCH (08:15)
[2023-08-20 08:35] VITALS: BP 180/102; TEMP 97.7; O2SAT 95
[2023-08-20] MEDS: DULoxetine 30MG CAPSULE (CYMBALTA) PO SCH (10:10)
[2023-08-20] MEDS: ACETAMINOPHEN 500 MG TAB PO SCH ×3 (10:11→20:31)
[2023-08-20] MEDS: NYSTATIN CREAM 15GM TOP SCH ×2 (10:12→20:31)
[2023-08-20] MEDS: ENOXAPARIN 40MG/0.4ML SYRINGE (J1650 PER 10MG) SC SCH (10:13)
[2023-08-20] MEDS: DICLOFENAC EPOLAMINE 1.3% PATCH TOP SCH ×2 (10:14→20:31)
[2023-08-20] MEDS: EZETIMIBE 10MG TABLET (ZETIA) PO SCH (20:31)
[2023-08-20] MEDS: CEPACOL LOZENGE PO PRN (21:42)
[2023-08-21 02:55] VITALS: BP 155/87
[2023-08-21] MEDS: CEPACOL LOZENGE PO PRN ×6 (03:00→19:42)
[2023-08-21] MEDS: LEVOTHYROXINE 25MCG TABLET (0.025MG) PO SCH (05:07)
[2023-08-21 06:00] VITALS: BP 178/99; TEMP 97.9; O2SAT 92
[2023-08-21] MEDS: amLODIPine 5 MG TAB PO SCH (06:50)
[2023-08-21 08:20] VITALS: BP 159/89; O2SAT 98
[2023-08-21] MEDS: ACETAMINOPHEN 500 MG TAB PO SCH ×3 (08:25→20:50)
[2023-08-21] MEDS: DULoxetine 30MG CAPSULE (CYMBALTA) PO SCH (08:25)
[2023-08-21] MEDS: DICLOFENAC EPOLAMINE 1.3% PATCH TOP SCH ×2 (08:25→20:50)
[2023-08-21] MEDS: ENOXAPARIN 40MG/0.4ML SYRINGE (J1650 PER 10MG) SC SCH (08:26)
[2023-08-21] MEDS: NYSTATIN CREAM 15GM TOP SCH ×2 (08:26→20:52)
[2023-08-21] MEDS ORDERED: METOPROLOL TART 25 MG TABLET PO ONE (09:10)
[2023-08-21 14:09] VITALS: BP 120/52; O2SAT 72
[2023-08-21] MEDS: EZETIMIBE 10MG TABLET (ZETIA) PO SCH (20:49)
[2023-08-22] MEDS: LEVOTHYROXINE 25MCG TABLET (0.025MG) PO SCH (05:57)
[2023-08-22] MEDS: CEPACOL LOZENGE PO PRN ×2 (05:57→09:01)
[2023-08-22 06:05] VITALS: BP 158/62; TEMP 97.5; O2SAT 91
[2023-08-22] MEDS: DICLOFENAC EPOLAMINE 1.3% PATCH TOP SCH ×2 (08:59→21:28)
[2023-08-22] MEDS: amLODIPine 5 MG TAB PO SCH (09:00)
[2023-08-22] MEDS: ACETAMINOPHEN 500 MG TAB PO SCH ×3 (09:00→21:32)
[2023-08-22] MEDS: DULoxetine 30MG CAPSULE (CYMBALTA) PO SCH (09:01)
[2023-08-22] MEDS: METOPROLOL TART 25 MG TABLET PO SCH (09:01)
[2023-08-22] MEDS: NYSTATIN CREAM 15GM TOP SCH ×2 (09:01→21:32)
[2023-08-22] MEDS: ENOXAPARIN 40MG/0.4ML SYRINGE (J1650 PER 10MG) SC SCH (09:01)
[2023-08-22] MEDS: ANALGESIC BALM CRM 3OZ TOP SCH ×2 (17:13→21:29)
[2023-08-22] MEDS: EZETIMIBE 10MG TABLET (ZETIA) PO SCH (21:31)
[2023-08-23] MEDS: LEVOTHYROXINE 25MCG TABLET (0.025MG) PO SCH (05:15)
[2023-08-23 05:44] VITALS: BP 188/96; TEMP 98.1; O2SAT 97
[2023-08-23] MEDS: amLODIPine 5 MG TAB PO SCH (05:50)
[2023-08-23 06:53] VITALS: BP 172/78
[2023-08-23 09:03] VITALS: BP 172/78
[2023-08-23] MEDS: DICLOFENAC EPOLAMINE 1.3% PATCH TOP SCH (09:03)
[2023-08-23] MEDS: METOPROLOL TART 25 MG TABLET PO SCH (09:03)
[2023-08-23] MEDS: DULoxetine 30MG CAPSULE (CYMBALTA) PO SCH (09:03)
[2023-08-23] MEDS: ENOXAPARIN 40MG/0.4ML SYRINGE (J1650 PER 10MG) SC SCH (09:04)
[2023-08-23] MEDS: ACETAMINOPHEN 500 MG TAB PO SCH (09:04)
[2023-08-23] MEDS: ANALGESIC BALM CRM 3OZ TOP SCH (09:04)
[2023-08-23] MEDS: NYSTATIN CREAM 15GM TOP SCH (09:05)
[2023-08-23] MEDS ORDERED: METO1TAB87 PO (10:19)
[2023-08-23] MEDS ORDERED: ACET-683 PO (10:19)
[2023-08-23] MEDS ORDERED: MUSCCRE9 TOP (10:19)
[2023-08-23 10:34] VITALS: BP 137/73
== END 2023-08-23 11:35 ==
LOC: M ED 10:14 → M ED INP 10:15 → M MSPAV 18:44
PROVIDERS: ADMIT Student in an Organized Health Care Education/Training Program; ATTEND Family Medicine
DX: R54 Age-related physical debility (principal); R26.2 Difficulty in walking, not elsewhere classified; M25.512 Pain in left shoulder; M50.80 Other cervical disc disorders, unspecified cervical region; I11.0 Hypertensive heart disease with heart failure; I49.5 Sick sinus syndrome; Z95.0 Presence of cardiac pacemaker; I48.20 Chronic atrial fibrillation, unspecified; J45.909 Unspecified asthma, uncomplicated; I25.10 Atherosclerotic heart disease of native coronary artery without angina pectoris; E03.9 Hypothyroidism, unspecified; I50.30 Unspecified diastolic (congestive) heart failure; M16.0 Bilateral primary osteoarthritis of hip; M17.0 Bilateral primary osteoarthritis of knee; I69.354 Hemiplegia and hemiparesis following cerebral infarction affecting left non-dominant side; Z82.3 Family history of stroke; Z82.0 Family history of epilepsy and other diseases of the nervous system; Z80.3 Family history of malignant neoplasm of breast; Z88.2 Allergy status to sulfonamides; Z88.8 Allergy status to other drugs, medicaments and biological substances; Z88.1 Allergy status to other antibiotic agents; Z79.899 Other long term (current) drug therapy; Z79.890 Hormone replacement therapy; Z79.01 Long term (current) use of anticoagulants
CPT/HCPCS: 36415; 71045; 73030; 80048; 82550; 83735; 85025; 85027; 87635; 93005; 96372; 97162; 97165; 97530; 97535; 99285; G0378; J1650

== ENCOUNTER → 2023-10-24 | Outpatient (CLI) | payer MEDICARE ==
[~2023-10-24] MED LIST changes: +ACET-683 PO; +METO1TAB87 PO; +MUSCCRE9 TOP
== END ==
LOC: M PAIN 11:15
PROVIDERS: ATTEND Nurse Practitioner Family
DX: M79.12 Myalgia of auxiliary muscles, head and neck (principal); G89.29 Other chronic pain; M79.18 Myalgia, other site; I10 Essential (primary) hypertension; I49.5 Sick sinus syndrome; Z95.0 Presence of cardiac pacemaker; K21.9 Gastro-esophageal reflux disease without esophagitis; K44.9 Diaphragmatic hernia without obstruction or gangrene; M50.123 Cervical disc disorder at C6-C7 level with radiculopathy; J45.20 Mild intermittent asthma, uncomplicated; I25.10 Atherosclerotic heart disease of native coronary artery without angina pectoris; E03.9 Hypothyroidism, unspecified; G25.0 Essential tremor; Z79.890 Hormone replacement therapy; Z79.899 Other long term (current) drug therapy

== ENCOUNTER → 2023-12-13 | Outpatient (CLI) | payer MEDICARE | LOC: M PAIN 09:15 | PROVIDERS: ATTEND Nurse Practitioner Family | DX: M79.12 Myalgia of auxiliary muscles, head and neck (principal); M79.18 Myalgia, other site; G89.29 Other chronic pain; Z79.890 Hormone replacement therapy; Z79.899 Other long term (current) drug therapy ==

== ENCOUNTER → 2024-01-11 | Outpatient (CLI) | payer MEDICARE ==
[~2024-01-11] MED LIST changes: -HYDR-3910 PO; -HYDR25TA PO; +HYDR25TA87 PO; +HYDR25TA88 PO; +TRIAMCINOLONE ACETONIDE SUSP 40MG/ML 1ML VIAL As Ordered ONE
== END ==
LOC: M PAIN 08:30
PROVIDERS: ATTEND Anesthesiology
DX: M79.12 Myalgia of auxiliary muscles, head and neck (principal); M79.18 Myalgia, other site; I10 Essential (primary) hypertension; K21.9 Gastro-esophageal reflux disease without esophagitis; K44.9 Diaphragmatic hernia without obstruction or gangrene; I49.5 Sick sinus syndrome; M17.0 Bilateral primary osteoarthritis of knee; M47.812 Spondylosis without myelopathy or radiculopathy, cervical region; I25.10 Atherosclerotic heart disease of native coronary artery without angina pectoris; E03.9 Hypothyroidism, unspecified; Z95.0 Presence of cardiac pacemaker; Z79.890 Hormone replacement therapy; Z79.899 Other long term (current) drug therapy; Z88.8 Allergy status to other drugs, medicaments and biological substances
CPT/HCPCS: 20553; J0665; J3301

== ENCOUNTER → 2024-02-14 | Outpatient (CLI) | payer MEDICARE ==
[~2024-02-14] MED LIST changes: -TRIAMCINOLONE ACETONIDE SUSP 40MG/ML 1ML VIAL As Ordered ONE
== END ==
LOC: M PAIN 09:45
PROVIDERS: ATTEND Nurse Practitioner Family
DX: M54.12 Radiculopathy, cervical region (principal); G89.29 Other chronic pain; I10 Essential (primary) hypertension; I49.5 Sick sinus syndrome; Z95.0 Presence of cardiac pacemaker; K21.9 Gastro-esophageal reflux disease without esophagitis; K44.9 Diaphragmatic hernia without obstruction or gangrene; M16.0 Bilateral primary osteoarthritis of hip; M17.0 Bilateral primary osteoarthritis of knee; J45.20 Mild intermittent asthma, uncomplicated; I25.10 Atherosclerotic heart disease of native coronary artery without angina pectoris; E03.9 Hypothyroidism, unspecified; Z79.890 Hormone replacement therapy; Z79.899 Other long term (current) drug therapy; Z88.1 Allergy status to other antibiotic agents

== ENCOUNTER → 2025-08-13 | Outpatient (CLI) | payer MEDICARE ==
[~2025-08-13] MED LIST changes: +DICL1SOL4 TOP; -DICL5SOL3 TOP; -EZET10TA21 PO; +EZET10TA57 PO; +METH85CR6 TOP; -MUSCCRE9 TOP; +NYST1POW3 TOP; -NYST1POW9 TOP
== END ==
LOC: M RAD 10:56
PROVIDERS: ATTEND Physician Assistant
DX: I65.23 Occlusion and stenosis of bilateral carotid arteries (principal)